=== PATIENT | female | born 1935 | race Caucasian/White ===

== ENCOUNTER 2016-05-10 00:33 | Observation (INO) | payer MEDICARE ==
[~2016-05-10] VITALS: Ht 177.8 cm; Wt 90.0 kg
[~2016-05-10 00:33] MED LIST: BRIMONIDINE0.2 % OU; CARDIZEM90 MG PO; CARVEDILOL6.25 MG PO; COUMADIN2 MG PO; DILTIAZEM CD180 MG PO; DORZOLAMIDE HCL2 % OD; ISOSORB DIN30 MG PO; ISOSORB MONO30 MG PO; KLOR-CON 1010 MEQ PO; LASIX 20 MG TAB20 MG PO; LOSARTAN POT50 MG PO; LUMIGAN0.01 % OP; LUMIGAN0.01 % OU; LUMIGAN0.03 % OP; POT CHLORIDE10 ME1 PO; POTASSIMIN75 MG PO; PRED FORTE1 % OS; WARFARIN2 MG PO
[2016-05-10] MEDS ORDERED: ESCITALOPRAM OX10 MG PO (01:15)
[2016-05-10] MEDS ORDERED: RANEXA PO (01:26)
[2016-05-10 01:49] LABS: HEMATOCRIT 38.6 % (37.0-47.0); HEMOGLOBIN 12.7 g/dl (12.0-16.0); IMMATURE GRANULOCYTES 0.7 % (0.0-1.0); MEAN CELL VOLUME 109.7 fL CALC (80.0-100.0); MEAN CORPUSCULAR HGB 36.1 pG CALC (26.0-32.0); MEAN CORPUSCULAR HGB CONC 32.9 g/L CALC (32.0-36.0); NEUT# 3.62 thou/uL (2.00-7.15); RED BLOOD COUNT 3.52 mill/uL (4.20-5.60); RED CELL DISTRI WIDTH 13.8 % (11.5-15.5)
[2016-05-10 02:11] LABS: INTERNATIONAL NORMALIZED RATIO 0.9 RATIO (0.7-1.3); PROTHROMBIN TIME 10.1 SECONDS (9.0-12.5)
[2016-05-10 02:26] LABS: ALBUMIN 3.9 g/dL (3.2-5.0); ALKALINE PHOSPHATASE 56 u/l (38-126); ANION GAP 15 (6-22 (CALC)); BILIRUBIN, TOTAL 0.3 mg/dL (0.0-1.4); BUN 19 mg/dL (8-23); BUN/CREATININE RATIO 26 (12-20 (CALC)); CALCIUM 10.5 mg/dL (8.4-10.2); CARBON DIOXIDE 24 mmol/l (22-30); CHLORIDE 103 mmol/l (95-108); CREATININE 0.7 mg/dL (0.5-1.0); GFR > 60 ML/MIN (>=60 (CALC)); GFR FOR AFR.AMER. > 60 ML/MIN (>=60 (CALC)); GLUCOSE 315 mg/dL (82-115); POTASSIUM 3.9 mmol/l (3.5-5.1); SGOT/AST 28 u/l (9-36); SGPT/ALT 43 u/l (11-66); SODIUM 138 mmol/l (137-146); TOTAL PROTEIN 6.6 g/dL (6.3-8.2)
[2016-05-10 02:36] LABS: MYOGLOBIN 112 ng/mL (0 - 62)
[2016-05-10 03:51] LABS: URINE BILIRUBIN - DIPSTICK NEGATIVE (NEGATIVE); URINE BLOOD DIPSTICK TRACE-INTACT (NEGATIVE); URINE CLARITY CLEAR; URINE COLOR YELLOW; URINE GLUCOSE - DIPSTICK >=1000 mg/dL (NEGATIVE); URINE KETONE NEGATIVE (NEGATIVE); URINE LEUK ESTERASE NEGATIVE (NEGATIVE); URINE NITRITE - DIPSTICK NEGATIVE (Negative); URINE PROTEIN - DIPSTICK NEGATIVE (NEG-TRACE); URINE UROBILINOGEN - DIPSTICK 0.2 E.U./dL (0.2)
[2016-05-10 06:30] VITALS: BP 136/82
[2016-05-10 09:07] VITALS: BP 116/72
[2016-05-10 14:13] VITALS: BP 116/72
== END 2016-05-10 16:42 | disposition home or self-care (01) ==
LOC: ENPENDDIS → ED 00:33 → ED-I 05:27 → ED 05:50 → MS2 05:51
PROVIDERS: Emergency Medicine; ADMIT Internal Medicine; ATTEND Internal Medicine
DX: R07.89 Other chest pain (principal); I48.2 Chronic atrial fibrillation; I11.0 Hypertensive heart disease with heart failure; I50.9 Heart failure, unspecified; M19.90 Unspecified osteoarthritis, unspecified site; Z88.0 Allergy status to penicillin; Z79.01 Long term (current) use of anticoagulants

== ENCOUNTER 2017-02-26 09:34 | Emergency (ER) | payer MEDICARE ==
[~2017-02-26] VITALS: Ht 177.8 cm; Wt 90.0 kg
[~2017-02-26 09:34] MED LIST changes: +ESCITALOPRAM OX10 MG PO; +JANUVIA50 MG PO; +RANEXA PO; +VITAMIN B-121000 MCG PO
[2017-02-26 11:51] LABS: HEMATOCRIT 36.9 % (37.0-47.0); HEMOGLOBIN 12.2 g/dl (12.0-16.0); IMMATURE GRANULOCYTES 0.3 % (0.0-1.0); MEAN CELL VOLUME 110.8 fL CALC (80.0-100.0); MEAN CORPUSCULAR HGB 36.6 pG CALC (26.0-32.0); MEAN CORPUSCULAR HGB CONC 33.1 g/L CALC (32.0-36.0); NEUT# 2.7 thou/uL (2.00-7.15); RED BLOOD COUNT 3.33 mill/uL (4.20-5.60); RED CELL DISTRI WIDTH 13.5 % (11.5-15.5)
[2017-02-26 11:58] LABS: ALBUMIN 4.2 g/dL (3.2-5.0); ALKALINE PHOSPHATASE 58 u/l (38-126); ANION GAP 17 (6-22 (CALC)); BILIRUBIN, TOTAL 0.6 mg/dL (0.0-1.4); BUN 20 mg/dL (8-23); BUN/CREATININE RATIO 19 (12-20 (CALC)); CALCIUM 11.6 mg/dL (8.4-10.2); CARBON DIOXIDE 28 mmol/l (22-30); CHLORIDE 98 mmol/l (95-108); GFR 53 ML/MIN (>=60 (CALC)); GFR FOR AFR.AMER. > 60 ML/MIN (>=60 (CALC)); GLUCOSE 152 mg/dL (82-115); INTERNATIONAL NORMALIZED RATIO 2.1 RATIO (0.7-1.3); POTASSIUM 4.3 mmol/l (3.5-5.1); SGOT/AST 18 u/l (9-36); SGPT/ALT 22 u/l (11-66); SODIUM 139 mmol/l (137-146); TOTAL PROTEIN 6.6 g/dL (6.3-8.2)
[2017-02-26 14:45] VITALS: BP 118/68
[2017-02-26 15:05] LABS: URINE BILIRUBIN - DIPSTICK NEGATIVE (NEGATIVE); URINE BLOOD DIPSTICK NEGATIVE (NEGATIVE); URINE COLOR YELLOW; URINE GLUCOSE - DIPSTICK NEGATIVE (NEGATIVE); URINE KETONE NEGATIVE (NEGATIVE); URINE LEUK ESTERASE NEGATIVE (Negative); URINE NITRITE - DIPSTICK NEGATIVE (Negative); URINE PROTEIN - DIPSTICK NEGATIVE (NEG-TRACE); URINE UROBILINOGEN - DIPSTICK 0.2 E.U./dL (0.2)
[2017-02-26 15:06] LABS: URINE CLARITY CLEAR
[2017-02-27] MEDS ORDERED: METOLAZONE2.5 MG PO (17:28)
[2017-02-27] MEDS ORDERED: ANASTROZOLE1 MG PO (17:30)
[2017-02-27] MEDS ORDERED: VITAMIN D32000 UNIT PO (17:30)
[2017-02-27] MEDS ORDERED: COUMADIN3 MG PO (17:32)
== END 2017-02-26 15:25 | disposition home or self-care (01) ==
LOC: ED 09:34
PROVIDERS: Emergency Medicine
DX: S09.90XA Unspecified injury of head, initial encounter (principal); R53.1 Weakness; W06.XXXA Fall from bed, initial encounter; Z91.81 History of falling; Y92.003 Bedroom of unspecified non-institutional (private) residence as the place of occurrence of the external cause

== ENCOUNTER 2017-02-27 14:35 | Inpatient (IN) | payer MEDICARE ==
[~2017-02-27] VITALS: Ht 177.8 cm; Wt 84.9 kg
[2017-02-27 15:15] LABS: HEMATOCRIT 38.7 % (37.0-47.0); HEMOGLOBIN 12.9 g/dl (12.0-16.0); IMMATURE GRANULOCYTES 0.3 % (0.0-1.0); MEAN CELL VOLUME 110.3 fL CALC (80.0-100.0); MEAN CORPUSCULAR HGB 36.8 pG CALC (26.0-32.0); MEAN CORPUSCULAR HGB CONC 33.3 g/L CALC (32.0-36.0); NEUT# 2.75 thou/uL (2.00-7.15); RED BLOOD COUNT 3.51 mill/uL (4.20-5.60); RED CELL DISTRI WIDTH 13.3 % (11.5-15.5)
[2017-02-27 15:20] LABS: PROTHROMBIN TIME 22.4 SECONDS (9.0-12.5)
[2017-02-27 15:21] LABS: ALBUMIN 4.4 g/dL (3.2-5.0); ALKALINE PHOSPHATASE 59 u/l (38-126); ANION GAP 16 (6-22 (CALC)); BILIRUBIN, TOTAL 0.7 mg/dL (0.0-1.4); BUN 21 mg/dL (8-23); BUN/CREATININE RATIO 20 (12-20 (CALC)); CALCIUM 11.7 mg/dL (8.4-10.2); CARBON DIOXIDE 27 mmol/l (22-30); CHLORIDE 100 mmol/l (95-108); CREATININE 1.1 mg/dL (0.5-1.0); GFR 48 ML/MIN (>=60 (CALC)); GFR FOR AFR.AMER. 58 ML/MIN (>=60 (CALC)); GLUCOSE 148 mg/dL (82-115); POTASSIUM 4.1 mmol/l (3.5-5.1); SGOT/AST 21 u/l (9-36); SGPT/ALT 22 u/l (11-66); SODIUM 139 mmol/l (137-146); TOTAL PROTEIN 7.2 g/dL (6.3-8.2)
[2017-02-27 15:33] LABS: MYOGLOBIN 58 ng/mL (0 - 62)
--- NOTE | 2017-02-27 16:25 | NUR ---
PT ARRIVES WITH COMPLAINT OF WEAKNESS, SYNCOPAL EPISODE AT HER DOCTOR'S OFFICE. LEAKING IV SITE RETAPED, PT STARTED ON IVF PER LOW BP IN THE 80s SYSTOLIC. PT IMPROVES TO 94/53 AT THIS TIME, HAS BEEN HIGHER EARLIER.
--- NOTE | 2017-02-27 16:43 | NUR ---
SBAR PRINTED TO FLOOR
--- NOTE | 2017-02-27 16:45 | NUR ---
PT AWARE OF PENDING ADMISSION. CAREGIVER REMAINS AT BEDSIDE.
--- NOTE | 2017-02-27 17:15 | NUR ---
PT ARRIVED TO FLOOR VIA STRETCHER ACCOMPANIED BY CHAVEZ ARCHIBALD. PT TRANSFERED TO BED BY STAND-PIVOT. PT REPORTS DIZZINESS WITH SITTING/STANDING. FALL RPECAUTIONS REINFORCED. PT INSTRUCTED TO CALL FOR ASSIST OUT OF BED. CALL LIGHT REVIEWED AND IN REACH. PLAN OF CARE DISCUSSED. REPORTING OF CONCERNS ENCOURAGED. PT STATES UNDERSTANDING. PT'S 24/HR CAREGIVER JORDY AT BEDSIDE. BED ALARM SET FOR SAFETY.
--- NOTE | 2017-02-27 17:24 | NUR ---
REPORT PROVIDED TO CHRISSY, PT TAKEN TO ROOM 260 WITHOUT INCIDENT.
[2017-02-27] MEDS ORDERED: METOLAZONE2.5 MG PO (17:28)
[2017-02-27] MEDS ORDERED: VITAMIN D32000 UNIT PO (17:30)
[2017-02-27] MEDS ORDERED: ANASTROZOLE1 MG PO (17:30)
[2017-02-27] MEDS ORDERED: COUMADIN3 MG PO (17:32)
[2017-02-27 17:35] VITALS: BP 124/70
[2017-02-27 17:36] VITALS: BP 117/63
[2017-02-27 18:00] VITALS: BP 93/55
--- NOTE | 2017-02-27 19:00 | NUR ---
BEDSIDE REPORT RECEIVED FROM CHAVEZ YAN. PT SITTING UP IN BED WATCHING TV. ALERT AND ORIENTED. DENIES PAIN CURRENLTY. RESPIRATIONS EVEN AND UNLABORED. PLAN OF CARE DISCUSSED. PT ENCOURAGED TO VERBALZIE CONCERNS. STATES UNDERSTANDING. LIMB ALERT BRACELET TO LEFT ARM; HX OF L MASTECTOMY. TELE IN PLACE AND IV FLUIDS INFUSING WITHOUT DIFFICULTY. SAFETY MEASURES IN PLACE. CALL LIGHT WITHIN REACH.
--- NOTE | 2017-02-27 21:00 | NUR ---
HELD COREG FOR LOW BP 93/55 WITH RECHECK OF 106/65. WILL CONTINUE TO MONITOR BLOOD PRESSURES AND CHECK ORTHOSTATIC THIS SHIFT.
[2017-02-27 23:57] VITALS: BP 109/62
[2017-02-28] VITALS (9 sets, daily range): BP systolic 95–112; BP diastolic 62–77
--- NOTE | 2017-02-28 00:43 | NUR ---
PT UP WATCHING TV. C/O HEADACHE AND TYLENOL GIVEN WITH GOOD EFFECT. RESPIRATIONS EVEN AND UNLABORED. PT HAS NO REQUESTS AT THIS TIME. CALL LIGHT WITHIN REACH.
--- NOTE | 2017-02-28 04:35 | NUR ---
PT UP TO BSC TO VOID. DENIES PAIN. HAS NO REQUESTS AT THIS TIME. CALL LIGHT WITHIN REACH.
[2017-02-28 06:34] LABS: HEMATOCRIT 37.4 % (37.0-47.0); HEMOGLOBIN 12.2 g/dl (12.0-16.0); MEAN CORPUSCULAR HGB 36.2 pG CALC (26.0-32.0); MEAN CORPUSCULAR HGB CONC 32.6 g/L CALC (32.0-36.0); RED BLOOD COUNT 3.37 mill/uL (4.20-5.60); RED CELL DISTRI WIDTH 13.2 % (11.5-15.5)
[2017-02-28 06:49] LABS: ANION GAP 14 (6-22 (CALC)); BUN 19 mg/dL (8-23); BUN/CREATININE RATIO 20 (12-20 (CALC)); CARBON DIOXIDE 28 mmol/l (22-30); CHLORIDE 102 mmol/l (95-108); GFR 53 ML/MIN (>=60 (CALC)); GFR FOR AFR.AMER. > 60 ML/MIN (>=60 (CALC)); GLUCOSE 133 mg/dL (82-115); POTASSIUM 3.9 mmol/l (3.5-5.1); SODIUM 140 mmol/l (137-146)
[2017-02-28 07:00] LABS: PROTHROMBIN TIME 22.9 SECONDS (9.0-12.5)
--- NOTE | 2017-02-28 07:00 | NUR ---
SHIFT CHANGE REPRT FROM KATHARINE, PT AWAKE ALERT AND ORIENTED, C/O ACHING HEADACHE @ 12/05, ADDRESSED WITH MED, TELE MONITOR IN PLACE, ALL NEEDS ADDRESSED, CALL SHORE IN REACH.
--- NOTE | 2017-02-28 10:01 | NUR ---
ORTHO BP'S SUPINE = 103/64, 88 SITTING = 107/62, 89 STANDING = 110/69, 100
--- NOTE | 2017-02-28 10:42 | NUR ---
PHYSICAL THERAPISTS HERE AT THIS TIME AND AMBULATED PT IN [address], FAMILY MEMBERS AT BEDSIDE.
--- NOTE | 2017-02-28 12:00 | NUR ---
SITTING UP AT BEDSIDE HAVING MEAL, REPORTS HEADACHE HAS RESOLVED, ALL NEEDS ADDRESSED, CALL SHORE IN REACH.
--- NOTE | 2017-02-28 15:58 | NUR ---
RESTING IN BED, CLERGY VISITED, NO C/O DISCOMFORT.
--- NOTE | 2017-02-28 19:15 | NUR ---
PT RESTING IN BED WITH FAMILY AT BEDSIDE. PT ALERT AND ORIENTED. RESP EVEN AND UNLABORED. LUNGS CLEAR BILAT. NO DISTRESS NOTED. BRUISING TO FACE NOTED. PT STATES RIGHT EYE BLINDNESS. LEFT EYE REACTIVE TO LIGHT. ABD SOFT, BOWEL SOUNDS PRESENT. PEDAL PULSES PALPATED BILAT. TELE IN PLACE. IV RH PATENT, FLUSHED WITHOUT ANY DIFFICULTY. HAND GRASP STRONG BILAT. PT DENIES ANY PAIN OR DISCOMFORT. FREQUENT ROUNDS MADE. CALL LIGHT WITHIN REACH.
--- NOTE | 2017-02-28 21:50 | NUR ---
ORTHOSTATIC BP'S: 111/75, HR: 84, O2: 94 112/77, HR: 92, O2; 93 111/76, HR: 104, O2 96
[2017-03-01] VITALS (7 sets, daily range): BP systolic 105–136; BP diastolic 57–78
--- NOTE | 2017-03-01 00:46 | NUR ---
PT APPEARS TO BE SLEEPING WITH EYES CLOSED. RESP EVEN AND UNLABORED. NO DISTRESS NOTED. TELE IN PLACE. CALL LIGHT WITHIN REACH.
--- NOTE | 2017-03-01 04:45 | NUR ---
PT HAS HEADACHE. PT STATES "I WOULD LIKE TYLENOL FOR HEADACHE". PT MEDICATED. LAB IN ROOM WITH PT. PT REPOSITIONED FOR COMFORT. ASSESSMENT UNCHANGED. NO DISTRESS NOTED. CALL LIGHT WITHIN REACH.
[2017-03-01 06:15] LABS: HEMATOCRIT 41.2 % (37.0-47.0); HEMOGLOBIN 13.5 g/dl (12.0-16.0); IMMATURE GRANULOCYTES 0.3 % (0.0-1.0); MEAN CORPUSCULAR HGB 36.7 pG CALC (26.0-32.0); MEAN CORPUSCULAR HGB CONC 32.8 g/L CALC (32.0-36.0); NEUT# 1.77 thou/uL (2.00-7.15); RED BLOOD COUNT 3.68 mill/uL (4.20-5.60); RED CELL DISTRI WIDTH 12.9 % (11.5-15.5)
[2017-03-01 06:23] LABS: ANION GAP 14 (6-22 (CALC)); BUN 19 mg/dL (8-23); BUN/CREATININE RATIO 21 (12-20 (CALC)); CALCIUM 11.2 mg/dL (8.4-10.2); CARBON DIOXIDE 27 mmol/l (22-30); CHLORIDE 104 mmol/l (95-108); CREATININE 0.9 mg/dL (0.5-1.0); GFR 60 ML/MIN (>=60 (CALC)); GFR FOR AFR.AMER. > 60 ML/MIN (>=60 (CALC)); GLUCOSE 132 mg/dL (82-115); MAGNESIUM 2.3 mg/dL (1.6-2.3); POTASSIUM 4.1 mmol/l (3.5-5.1); SODIUM 141 mmol/l (137-146)
[2017-03-01 06:25] LABS: INTERNATIONAL NORMALIZED RATIO 1.6 RATIO (0.7-1.3); PROTHROMBIN TIME 18.3 SECONDS (9.0-12.5)
--- NOTE | 2017-03-01 07:00 | NUR ---
SHIFT CHANGE FROM FRED, PT SLEEPING BUT AROUSES TO MODERATE VERBAL STIMULATION, NO C/O DISCOMFORT, TELE MONITOR IN PLACE, CALL SHORE IN REACH.
--- NOTE | 2017-03-01 09:16 | NUR ---
PT WAS ABLE TO DO SUPINE TO SIT INDEPENDENTLY. PERFORMED ROLLING, SCOOTING AND [id number] INDEPENDENTLY. SHE WAS ABLE TO AMBULATE AT LEAST 70 FT. X 2 WITH RW AND CGA FOR SAFETY. PT DEMONSTRATED STABILITY DURING GT. REQUIRED ONLY MINIMAL VERBAL CUES ON THE USE OF ROLLING WALKER. RETURNED TO ROOM, SAT IN THE RECLINER WITH LEGS ELEVATED. CALL SHORE WITHIN REACH. NO ADVERSE RXNS NOTED OR REPORTED AT THE END OF TX.
--- NOTE | 2017-03-01 10:30 | NUR ---
DR WHITE AND ANNALISE DENNIS, WROTE ORDERS.
--- NOTE | 2017-03-01 12:07 | NUR ---
ORTHOSTATIC BP MEASURED AND RECORDED AFTER INFORMING/EDUCATING PT ON PROCEDURE, AMBULATED HALLWAY EARLIER WITH PT AND TOLERATED WELL, SET UP FOR MEAL, CALL SHORE IN REACH.
--- NOTE | 2017-03-01 16:25 | NUR ---
NEW IV CATHETER PLACED, HEADACHE ADDRESSED, RESTING N BED WITH CALL SHORE IN REACH.
--- NOTE | 2017-03-01 19:25 | NUR ---
PT RESTING IN BED WITH FAMILY AT BEDSIDE. PT ALERT AND ORIENTED. PT DENIES ANY PAIN OR DISCOMFORT. RESP EVEN AND UNLABORED. LUNGS CLEAR BILAT. NO DISTRESS NOTED. TELE IN PLACE. ABD SOFT, BOWEL SOUNDS PRESENT. PEDAL PULSES PALPATED BILAT. HAND GRASP STRONG BILAT. FACIAL BRUISING NOTED. IV RW PATENT, FLUSHED WITHOUT DIFFICULTY. FREQUENT ROUNDS MADE. SAFETY PRECAUTIONS REINFORCED. CALL LIGHT WITHIN REACH.
--- NOTE | 2017-03-02 00:38 | NUR ---
PT APPEARS TO BE SLEEPING WITH EYES CLOSED. RESP EVEN AND UNLABORED. NO DISTRESS NOTED. TELE IN PLACE. CALL LIGHT WITHIN REACH.
[2017-03-02 01:00] LABS: URINE BILIRUBIN - DIPSTICK NEGATIVE (NEGATIVE); URINE BLOOD DIPSTICK NEGATIVE (NEGATIVE); URINE COLOR YELLOW; URINE GLUCOSE - DIPSTICK NEGATIVE (NEGATIVE); URINE KETONE NEGATIVE (NEGATIVE); URINE LEUK ESTERASE NEGATIVE (NEGATIVE); URINE NITRITE - DIPSTICK NEGATIVE (Negative); URINE PROTEIN - DIPSTICK NEGATIVE (NEG-TRACE); URINE UROBILINOGEN - DIPSTICK 0.2 E.U./dL (0.2)
[2017-03-02 01:01] LABS: URINE CLARITY CLEAR
[2017-03-02 01:02] VITALS: BP 102/68
--- NOTE | 2017-03-02 04:10 | NUR ---
PT APPEARS TO BE ASLEEP. RESP EVEN AND UNLABORED. NO DISTRESS NOTED. CALL LIGHT WITHIN REACH .
[2017-03-02 04:30] VITALS: BP 109/64
--- NOTE | 2017-03-02 05:31 | NUR ---
LAB IN ROOM WITH PT. PT DENIES ANY PAIN OR DISCOMFORT. RESP EVEN AND UNLABORED. ASSESSMENT UNCHANGED. CALL LIGHT WITHIN REACH.
[2017-03-02 06:58] LABS: INTERNATIONAL NORMALIZED RATIO 1.6 RATIO (0.7-1.3); PROTHROMBIN TIME 17.5 SECONDS (9.0-12.5)
[2017-03-02 07:10] LABS: ANION GAP 13 (6-22 (CALC)); BUN 21 mg/dL (8-23); BUN/CREATININE RATIO 22 (12-20 (CALC)); CALCIUM 10.8 mg/dL (8.4-10.2); CARBON DIOXIDE 30 mmol/l (22-30); CHLORIDE 104 mmol/l (95-108); CREATININE 0.9 mg/dL (0.5-1.0); GFR 60 ML/MIN (>=60 (CALC)); GFR FOR AFR.AMER. > 60 ML/MIN (>=60 (CALC)); GLUCOSE 128 mg/dL (82-115); POTASSIUM 4.3 mmol/l (3.5-5.1); SODIUM 142 mmol/l (137-146)
--- NOTE | 2017-03-02 09:15 | NUR ---
Pt. found resting in bed, refused to get out of bed for ambulation but agreed to participate in bed exercises this AM. HOB was elevated, pt. instructed on and performed bilateral ankle pumps 2x20 repetitons, R and L uni active hip abuction in long sitting 2x8 repetitions, R and L uni SAQ exercises 1x10 repetitions and R and L uni heel slides 1x10 repetitions. Pt. reported feeling tired after these few exercises, nurse came in at the end of treatment. Pt. complained of headache and was requesting medication for same. Pt. left with nurse. Call light and bedside table within reach. Pt. without questions in regards to exercises.
[2017-03-02 09:17] VITALS: BP 118/70
--- NOTE | 2017-03-02 09:17 | NUR ---
PT.IS UPRIGHT IN BED W/BEDSIDE TABLE AND CALL LIGHT W/IN REACH. SHE REPORTS EATING HER BREAKFAST. PT.HAS BEEN MEDICATED AT THIS TIME ORDERS PROVIDE. SHE C/O HEADACHE 10/05, APPEARS 06/05. PT.IS TALKATIVE, DENIES ANY OTHER PAIN/N/V AT THIS TIME. V/S ASSESSED, REPORTS SMALL BMX2 YESTERDAY, BUT IS REQUESTING MILK OF MAGNESIA AGAIN. PT.MEDICATED W/SATURNINO-COLACE ORDERED.
--- NOTE | 2017-03-02 10:00 | NUR ---
PT.IS GETTING A SHOWER AT THIS TIME.
[2017-03-02 10:30] VITALS: BP 111/63
--- NOTE | 2017-03-02 10:30 | NUR ---
ORTHOSTATIC BP ON PATIENT. LAYIN.0;111/63;82;22;94% SITTIN/63;93;22;95% STANDIN/65;95;22;97% PT NOW RESTING IN CHAIR WITH CALL SHORE AT SIDE.
[2017-03-02 10:35] VITALS: BP 103/65
[2017-03-02 10:40] VITALS: BP 103/63
--- NOTE | 2017-03-02 11:30 | NUR ---
Elian from Case Management requested pharmacy to speak with pt about her meds. Pt wondering what medications will be changed upon discharge. Informed pt that we will continue to monitor her BP and may make adjustments to her BP medication due to her orthostatic hypotension. Counseled pt in depth about orthostatic hypotension, including the importance of getting up slowly, sitting on side of bed for a few minutes before standing, and using her walker. Pt verbalized understanding. Counseled pt to take water pill in the morning to reduce getting up during the night. Pt concerned she has not had bowel movement today, however she had two small BMs yesterday. Explained s/sx of constipation and prevention.
[2017-03-02] MEDS ORDERED: TRAMADOL HCL50 MG PO (14:39)
== END 2017-03-02 16:13 | DRG 312 ==
LOC: ED 14:35 → ED-I 16:16 → ED 16:36 → MS2 16:38
PROVIDERS: Emergency Medicine; Nurse Practitioner Family; ADMIT Internal Medicine; ATTEND Internal Medicine
DX: I95.2 Hypotension due to drugs (principal); I42.9 Cardiomyopathy, unspecified; I48.2 Chronic atrial fibrillation; I13.0 Hypertensive heart and chronic kidney disease with heart failure and stage 1 through stage 4 chronic kidney disease, or unspecified chronic kidney disease; I50.9 Heart failure, unspecified; H40.9 Unspecified glaucoma; H54.61 Unqualified visual loss, right eye, normal vision left eye; G31.84 Mild cognitive impairment of uncertain or unknown etiology; N18.9 Chronic kidney disease, unspecified; K59.00 Constipation, unspecified; T50.2X5A Adverse effect of carbonic-anhydrase inhibitors, benzothiadiazides and other diuretics, initial encounter; T50.1X5A Adverse effect of loop [high-ceiling] diuretics, initial encounter; S00.83XA Contusion of other part of head, initial encounter; S00.12XA Contusion of left eyelid and periocular area, initial encounter; S00.11XA Contusion of right eyelid and periocular area, initial encounter; W19.XXXA Unspecified fall, initial encounter; M81.0 Age-related osteoporosis without current pathological fracture; R53.1 Weakness; Y92.009 Unspecified place in unspecified non-institutional (private) residence as the place of occurrence of the external cause; Z85.3 Personal history of malignant neoplasm of breast; Z79.01 Long term (current) use of anticoagulants; Z90.12 Acquired absence of left breast and nipple; Z92.3 Personal history of irradiation; Z87.891 Personal history of nicotine dependence; Z95.818 Presence of other cardiac implants and grafts

== ENCOUNTER 2017-10-11 16:20 | Observation (INO) | payer MEDICARE ==
[~2017-10-11] VITALS: Ht 175.3 cm; Wt 89.9 kg
[~2017-10-11 16:20] MED LIST changes: +ANASTROZOLE1 MG PO; +COUMADIN3 MG PO; +METOLAZONE2.5 MG PO; +PRED FORTE1 % OD; -PRED FORTE1 % OS; +TRAMADOL HCL50 MG PO; +VITAMIN D32000 UNIT PO
[2017-10-11 16:51] LABS: HEMATOCRIT 34.7 % (37.0-47.0); HEMOGLOBIN 11.1 g/dl (12.0-16.0); IMMATURE GRANULOCYTES 0.3 % (0.0-5.0); MEAN CELL VOLUME 106.8 fL CALC (80.0-100.0); MEAN CORPUSCULAR HGB 34.2 pG CALC (26.0-32.0); NEUT# 2.01 thou/uL (2.00-7.15); RED BLOOD COUNT 3.25 mill/uL (4.20-5.60); RED CELL DISTRI WIDTH 14.2 % (11.5-15.5)
[2017-10-11 17:06] LABS: INTERNATIONAL NORMALIZED RATIO 2.1 RATIO (0.7-1.3); PROTHROMBIN TIME 24.4 SECONDS (9.0-12.5)
[2017-10-11 17:26] LABS: ALBUMIN 4.1 g/dL (3.2-5.0); ALKALINE PHOSPHATASE 51 u/l (38-126); AMYLASE 60 u/l (30-110); ANION GAP 14 (6-22 (CALC)); BILIRUBIN, TOTAL 0.5 mg/dL (0.0-1.4); BUN 16 mg/dL (8-23); BUN/CREATININE RATIO 19 (12-20 (CALC)); CARBON DIOXIDE 26 mmol/l (22-30); CHLORIDE 106 mmol/l (95-108); CREATININE 0.9 mg/dL (0.5-1.0); GFR 60 ML/MIN (>=60 (CALC)); GFR FOR AFR.AMER. > 60 ML/MIN (>=60 (CALC)); LIPASE 57 u/l (23-300); POTASSIUM 4.9 mmol/l (3.5-5.1); SGOT/AST 22 u/l (9-36); SGPT/ALT 17 u/l (11-66); SODIUM 141 mmol/l (137-146); TOTAL PROTEIN 6.9 g/dL (6.3-8.2)
[2017-10-11 18:00] LABS: MYOGLOBIN 31 ng/mL (0 - 62)
[2017-10-11 19:15] VITALS: BP 133/79
[2017-10-11 23:58] VITALS: BP 111/58
[2017-10-12 04:40] VITALS: BP 99/54
[2017-10-12 08:37] VITALS: BP 103/68
[2017-10-12 11:20] VITALS: BP 124/64
== END 2017-10-12 14:35 | disposition home or self-care (01) ==
LOC: ED 16:20 → ED-I 18:00 → ED 18:37 → MS2 18:38
PROVIDERS: Emergency Medicine; ADMIT Internal Medicine; ATTEND Internal Medicine
DX: R07.9 Chest pain, unspecified (principal); I11.0 Hypertensive heart disease with heart failure; I50.9 Heart failure, unspecified; D53.9 Nutritional anemia, unspecified; H40.9 Unspecified glaucoma; I42.9 Cardiomyopathy, unspecified; I48.2 Chronic atrial fibrillation; Z87.891 Personal history of nicotine dependence; Z79.01 Long term (current) use of anticoagulants; Z85.3 Personal history of malignant neoplasm of breast; Z79.899 Other long term (current) drug therapy

== ENCOUNTER 2018-01-06 15:27 | Observation (INO) | payer MEDICARE ==
[~2018-01-06] VITALS: Ht 177.8 cm; Wt 92.2 kg
--- NOTE | 2018-01-06 15:29 | NUR ---
PT BROUGHT TO ER PER EMS.
--- NOTE | 2018-01-06 15:41 | NUR ---
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 DENIES LOC
--- NOTE | 2018-01-06 15:58 | NUR ---
PT STATES CAN NOT USE LEFT ARM BECAUSE OF MASECTOMY . NO NEEDLE STICKS TO LEFT ARM
[2018-01-06 16:03] LABS: HEMATOCRIT 35.1 % (37.0-47.0); HEMOGLOBIN 10.9 g/dl (12.0-16.0); IMMATURE GRANULOCYTES 0.2 % (0.0-5.0); MEAN CELL VOLUME 105.1 fL CALC (80.0-100.0); MEAN CORPUSCULAR HGB 32.6 pG CALC (26.0-32.0); MEAN CORPUSCULAR HGB CONC 31.1 g/L CALC (32.0-36.0); NEUT# 2.7 thou/uL (2.00-7.15); RED BLOOD COUNT 3.34 mill/uL (4.20-5.60); RED CELL DISTRI WIDTH 15.2 % (11.5-15.5)
[2018-01-06 16:20] LABS: INTERNATIONAL NORMALIZED RATIO 3.8 RATIO (0.7-1.3); PROTHROMBIN TIME 39.7 SECONDS (9.0-12.5)
--- NOTE | 2018-01-06 16:23 | NUR ---
PT ALERT/ORIENTED X3, JOKING WITH STAFF, DENIES ANY PAIN AT THIS TIME.
[2018-01-06 16:29] LABS: ALBUMIN 4.3 g/dL (3.2-5.0); ALKALINE PHOSPHATASE 47 u/l (38-126); ANION GAP 16 (6-22 (CALC)); BILIRUBIN, TOTAL 0.5 mg/dL (0.0-1.4); BUN 22 mg/dL (8-23); BUN/CREATININE RATIO 21 (12-20 (CALC)); CARBON DIOXIDE 22 mmol/l (22-30); CHLORIDE 108 mmol/l (95-108); GFR 53 ML/MIN (>=60 (CALC)); GFR FOR AFR.AMER. > 60 ML/MIN (>=60 (CALC)); POTASSIUM 4.6 mmol/l (3.5-5.1); SGOT/AST 19 u/l (9-36); SODIUM 141 mmol/l (137-146); TOTAL PROTEIN 7.3 g/dL (6.3-8.2)
--- NOTE | 2018-01-06 17:11 | NUR ---
REPORT GIVEN TO ICU
--- NOTE | 2018-01-06 17:30 | NUR ---
WAITING FOR ORDERS TO BE PLACED ON PT BEFORE TAKING PT TO ICU
--- NOTE | 2018-01-06 17:38 | NUR ---
HOTEL RECREATIONAL FACILITIES MANAGER SPOKE WITH DR. ROMERO, AND HE IS GOING TO PUT IN THE ORDERS SOON POSSIBLE
--- NOTE | 2018-01-06 17:40 | NUR ---
PTS FAMILY TOOK PTS WALLET AND GLASSES HOME WITH HER, SENDING WITH PT TO FLOOR IS HER TENNIS SHOES, BRA, AND PINK SHIRT.
--- NOTE | 2018-01-06 17:47 | NUR ---
CHARGE NURSE AWARE OF DELAY IN ORDERS FROM ADMITTING DOCTOR.
--- NOTE | 2018-01-06 17:50 | NUR ---
Admission Note Report Given to: SBAR PRINTED TO FLOOR Transported by: Wheelchair X Stretcher Transported with: X Nurse Transporter X Patent IV O2 X Economic Forecaster
[2018-01-06 17:55] VITALS: BP 142/67
--- NOTE | 2018-01-06 17:55 | NUR ---
female pt received to ICU bed 4 (MS OF) in stable condition; ambulatory to scale then bed with steady gait; admission assessment completed at this time; pt alert and oriented; admits to losing balance and falling backwards hitting head; no n/v noted; resp even and unlabored; lungs clear bilat; skin color wnl; ra; hr irreg; strong pulses; 2+ edema nored to ble; afib on monitor; abd soft with bs present; no bm noted per ad copy writer; pt voiding cl dk yellow urine; bsc; #22 in rw flushed and patent; no redness or edema noted at site; laceration noted with dermabond and steri-strips intact to right lat hand; no active bleeding noted; negative neuro assessment; oriented to bed and call light system; plan of care explained; informed pt to notify staff immed with change of vision, headache, n/v, numbness to extremities or not feeling right; call light within reach; will continue to monitor
[2018-01-06 19:09] VITALS: BP 122/61
--- NOTE | 2018-01-06 19:30 | NUR ---
PATIENT RESTING IN BED-AWAKE ALERT AND ORIENTEDX3. TELE MONITOR IN PLACE. SALINE LOCK TO RIGHT WRIST-APPEARS HEALTHY AT THIS TIME. 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 LEFT HAND GRASP SLIGHTLY WEAKER THAN RIGHT, PATIENT STATES THAT SHE DOES HAVE CAREGIVER THT STAYS WITH HER 18/09. LAC/SKIN TEAR TO RIGHT HAND INTACT WITH DERMABOND. SAFETY PRECAUTIONS REINFORCED. CALL LIGHT IN REACH. WILL CONT TO MONITOR.
--- NOTE | 2018-01-06 20:18 | NUR ---
PATIENT CALLED AND RESPONDED TO ROOM. PATIENT ASSISTED TO BSC TO VOID 300CC OF RABIA URINE. ASSISTED BACK TO BED. C/O HEADACHE ANDMEDICATED WITH TYLENOL 650MG PO FOR 6/10 ON PAIN SCALE. SALINE LOCK TO RIGHT WRIST INTACT-FLUSHES WITHOUT ANY RESISTANCE. SAFETY PRECAUTIONS REINFORCED. CALL LIGHT IN REACH. WILL CONT TO MONITOR.
--- NOTE | 2018-01-06 21:05 | NUR ---
PATIENT RESTING IN BED-STATES THAT HER HEADACHE IS BETTER-3/10 AT THIS TIME. NO COMPLAINTS AT THIS TIME. SAFTY PRECAUTIONS REINFORCED.CALL LIGHT IN REACH. WILL CONT TO MONITOR.
--- NOTE | 2018-01-06 23:40 | NUR ---
PATIENT APPEARS SLEEPING AT THIS TIME WITH EYES CLOSED. CALL LIGHT IN REACH. WILL CONT TO MONITOR.
[2018-01-07] VITALS (9 sets, daily range): BP systolic 104–151; BP diastolic 49–82
--- NOTE | 2018-01-07 00:36 | NUR ---
PATIENT RESTING IN BED WITH NO COMPLAINTS AT THIS TIME. NEURO CHECKS UNCAHNGED WITH RIGHT EYE NON-REACTIVE AND LEFT BRISK AND REACTIVE. HAND GRASP WITH RIGHT GREATER THAN LEFT. CONT TELE MONITORING WITH A-FIB-72. SAFETY PRECAUTIONS REINFORCED. CALL LIGHT IN REACH. WILL CONT TO MONITOR.
--- NOTE | 2018-01-07 02:12 | NUR ---
PATIENT RESTIONG QUIETLY AT THIS TIOME WITH EYES CLOSED. RESP ARE EVEN AND UNLABORED. CALL LIGHT IN REACH. WILL CONT TO MONITOR.
--- NOTE | 2018-01-07 04:12 | NUR ---
PATIENT RESTING INBED WITH NO COMPLAINTS AT THIS TIME, TELE MONITOR CONT WITH A-FIB-64 AT THIS TIME. NO CHANGE IN NEURO CHECKS. SAFETY PRECAUTIONS REINFORCED. CALL LIGHT IN REACH. WILL CONT TO MONITOR.
[2018-01-07 05:41] LABS: HEMATOCRIT 31.6 % (37.0-47.0); MEAN CELL VOLUME 103.9 fL CALC (80.0-100.0); MEAN CORPUSCULAR HGB 32.9 pG CALC (26.0-32.0); MEAN CORPUSCULAR HGB CONC 31.6 g/L CALC (32.0-36.0); RED BLOOD COUNT 3.04 mill/uL (4.20-5.60)
[2018-01-07 05:43] LABS: INTERNATIONAL NORMALIZED RATIO 3.2 RATIO (0.7-1.3); PROTHROMBIN TIME 32.7 SECONDS (9.0-12.5)
[2018-01-07 05:51] LABS: ANION GAP 7 (6-22 (CALC)); BUN 20 mg/dL (8-23); BUN/CREATININE RATIO 23 (12-20 (CALC)); CARBON DIOXIDE 27 mmol/l (22-30); CHLORIDE 110 mmol/l (95-108); CREATININE 0.8 mg/dL (0.5-1.0); GFR > 60 ML/MIN (>=60 (CALC)); GFR FOR AFR.AMER. > 60 ML/MIN (>=60 (CALC)); POTASSIUM 3.8 mmol/l (3.5-5.1); SODIUM 141 mmol/l (137-146)
--- NOTE | 2018-01-07 07:44 | NUR ---
SHIFT CHANGE REPORT FROM OSITO PT AWAKE ALERT AND ORIENTED, C/O MILD PAIN TO HEAD AND NECK BUT STATED SHE DOES NOT WANT ANYTHING FOR IT, ASSISTED TO BSC AND BACK TO BED, TELE MONITOR IN PLACE, SET UP FOR MEAL AT THIS TIME, WILL CONTINUE TO MONITOR.
--- NOTE | 2018-01-07 11:54 | NUR ---
SITING UP IN HIGH FOWLERS POSITION IN BED HAVING MEAL AT THIS TIME, ALL NEEDS ADDRESSED, CALL SHORE IN REACH.
--- NOTE | 2018-01-07 13:26 | NUR ---
PT TRANSFERRED FROM ICU OVERFLOW BED # 4 TO MED/SURG BED # 272 @ 1320, ASSISTED TO BR, CAREGIVER IN ROOM BUT STATED SHE IS UNABLE TO ASSIST PT OFF TOILET, PT ADVISED TO RING SHORE WHEN FINISHED, WILL CONTINUE TO MONITOR.
--- NOTE | 2018-01-07 13:33 | NUR ---
PT ASSISTED TO BED BY CAREGIVER AT THIS TIME.
--- NOTE | 2018-01-07 16:23 | NUR ---
RESTING IN BED, C/O HEADACHE AND GIVEN TYLENOL, SNACK ALSO OFFERED, CALL SHORE IN REACH, WILL CONTINUE TO MONITOR.
--- NOTE | 2018-01-07 19:21 | NUR ---
PATIENT RESTING IN BED WITH HOB ELEVATED. AWAKE ALERT AND ORIENTEDX3. PATIENT STATES THAT SHE DOES GET HEADACHE ON AND OFF RELIEVED BY TYLENOL PO. TELE MONITOR IN PLACE. SALINE LOCK TO RIGHT WRIST INTACT AND APPEARS HEALTHY AT THIS TIME. LACERATION TO RIGHT LAT HAND WITH DERMABOND IN PLACE-NO DRAINAGE NOTED AT THIS TIME. SAFETY PRECAUTIONS REINFORCED. CALL LIGHT IN REACH. WILL CONT TO MONITOR.
--- NOTE | 2018-01-07 23:52 | NUR ---
PATIENT UP TO THE BR TO VOID AND THEN BACK TO THE BED WITH ASSIST AND USE OF WALKER. PATIENT IS VOIDING QS RABIA URINE. C/O HEADACHE TO THE RIGHT SIDE OF HER HEAD-7/10 ON PAIN SCALE. MEDICATED WITH TYLENOL 650MG PO FOR PAIN. PATIENT TAKING KATELIN CRACKERS FOR SNACK. SAFETY PRECAUTIONS REINFORCED. CALL LIGHT IN REACH. WILL CONT TO MONITOR.
[2018-01-08 00:42] VITALS: BP 122/78
[2018-01-08 04:00] VITALS: BP 131/63
--- NOTE | 2018-01-08 04:23 | NUR ---
APPEARS SLEEPING AT THIS TIME WITH EYES CLOSED. RESP ARE EVEN AND UNLABORED. TELE MONITOR IN PLACE. CALL LIGHT IN REACH. WILL CONT TO MONITOR.
[2018-01-08 05:18] LABS: HEMATOCRIT 34.4 % (37.0-47.0); HEMOGLOBIN 10.8 g/dl (12.0-16.0); IMMATURE GRANULOCYTES 0.3 % (0.0-5.0); MEAN CELL VOLUME 104.6 fL CALC (80.0-100.0); MEAN CORPUSCULAR HGB 32.8 pG CALC (26.0-32.0); MEAN CORPUSCULAR HGB CONC 31.4 g/L CALC (32.0-36.0); NEUT# 1.74 thou/uL (2.00-7.15); RED BLOOD COUNT 3.29 mill/uL (4.20-5.60); RED CELL DISTRI WIDTH 15.1 % (11.5-15.5)
[2018-01-08 05:27] LABS: ALBUMIN 3.5 g/dL (3.2-5.0); ALKALINE PHOSPHATASE 46 u/l (38-126); ANION GAP 9 (6-22 (CALC)); BILIRUBIN, TOTAL 0.4 mg/dL (0.0-1.4); BUN 17 mg/dL (8-23); BUN/CREATININE RATIO 23 (12-20 (CALC)); CARBON DIOXIDE 26 mmol/l (22-30); CHLORIDE 110 mmol/l (95-108); CREATININE 0.8 mg/dL (0.5-1.0); GFR > 60 ML/MIN (>=60 (CALC)); GFR FOR AFR.AMER. > 60 ML/MIN (>=60 (CALC)); MAGNESIUM 2.2 mg/dL (1.6-2.3); SGOT/AST 15 u/l (9-36); SODIUM 140 mmol/l (137-146)
--- NOTE | 2018-01-08 07:00 | NUR ---
SHIFT CHANGE REPORT FROM CJ MCNEILL SLEEPING AT THIS TIME, BREATHING EVEN AND NON-LABORED, NO SIGN DISCOMFORT, TELE MONITOR IN PLACE, CALL SHORE IN REACH.
[2018-01-08 07:59] VITALS: BP 120/63
--- NOTE | 2018-01-08 09:40 | NUR ---
PT SITTING UP IN BED, ATE MEAL AND SLEEPING LIGHTLY AT THIS TIME, RESPONDS TO VERBAL AND TACTILE STIMULI, STATED SHE IS JUST TIRED, NEEDS ADDRESSED.
--- NOTE | 2018-01-08 10:46 | NUR ---
ASSISTED TO BR AND THEN TO RECLINER AFTER ENCOURAGING SITTING UP OOB, CUTTER OPERATOR HELPER IN ROOM, CALL SHORE IN REACH.
[2018-01-08 11:28] VITALS: BP 124/55
--- NOTE | 2018-01-08 12:00 | NUR ---
SITTING UP IN RECLINER, ATE MEAL, ALL NEEDS ADDRESSED, REFUSE COLLECTOR SUPERVISOR IN ROOM.
[2018-01-08 13:55] LABS: INTERNATIONAL NORMALIZED RATIO 2.1 RATIO (0.7-1.3); PROTHROMBIN TIME 22.1 SECONDS (9.0-12.5)
--- NOTE | 2018-01-08 15:51 | NUR ---
Discharge instructions given. Patient verbalizes understanding of same. Discharged in good condition via Wheelchair to Home with *Other. All belongings sent with pt. CAREGIVER RECEIVED PT TO TRANSPORT HOME
== END 2018-01-08 15:50 ==
LOC: ED 15:27 → ED-I 15:58 → ED 16:34 → ICU 16:35 → MS2 01-07 13:20
PROVIDERS: Internal Medicine Nephrology; Nurse Practitioner Family; ADMIT Internal Medicine; ATTEND Internal Medicine
PROC: 0HQFXZZ Repair Right Hand Skin, External Approach (ICD-10-PCS; principal; 2018-01-06)
DX: S00.03XA Contusion of scalp, initial encounter (principal); S61.411A Laceration without foreign body of right hand, initial encounter; I48.2 Chronic atrial fibrillation; C50.912 Malignant neoplasm of unspecified site of left female breast; R26.89 Other abnormalities of gait and mobility; I10 Essential (primary) hypertension; R73.9 Hyperglycemia, unspecified; E78.5 Hyperlipidemia, unspecified; M81.0 Age-related osteoporosis without current pathological fracture; W01.0XXA Fall on same level from slipping, tripping and stumbling without subsequent striking against object, initial encounter; Y92.009 Unspecified place in unspecified non-institutional (private) residence as the place of occurrence of the external cause; Z79.01 Long term (current) use of anticoagulants; Z90.12 Acquired absence of left breast and nipple; Z79.899 Other long term (current) drug therapy; Z87.891 Personal history of nicotine dependence

== ENCOUNTER 2018-04-15 00:57 | Emergency (ER) | payer MEDICARE ==
[~2018-04-15] VITALS: Ht 175.3 cm; Wt 87.7 kg
[2018-04-15 02:00] VITALS: BP 138/78
== END 2018-04-15 02:00 | disposition home or self-care (01) ==
LOC: ED 00:57
DX: S51.811A Laceration without foreign body of right forearm, initial encounter (principal); S41.111A Laceration without foreign body of right upper arm, initial encounter; I11.0 Hypertensive heart disease with heart failure; I50.9 Heart failure, unspecified; I48.91 Unspecified atrial fibrillation; H40.9 Unspecified glaucoma; W01.198A Fall on same level from slipping, tripping and stumbling with subsequent striking against other object, initial encounter; Y93.9 Activity, unspecified; Y92.009 Unspecified place in unspecified non-institutional (private) residence as the place of occurrence of the external cause

== ENCOUNTER → 2018-04-22 | Outpatient (REF) | payer MEDICARE ==
[2018-04-22 10:12] LABS: URINE BILIRUBIN - DIPSTICK NEGATIVE (NEGATIVE); URINE COLOR YELLOW; URINE GLUCOSE - DIPSTICK NEGATIVE (NEGATIVE); URINE KETONE NEGATIVE (NEGATIVE); URINE PH 6.5 (4.5-8.0); URINE UROBILINOGEN - DIPSTICK 0.2 E.U./dL (0.2)
[2018-04-22 10:31] LABS: HEMATOCRIT 33.7 % (37.0-47.0); HEMOGLOBIN 10.6 g/dl (12.0-16.0); MEAN CELL VOLUME 103.7 fL CALC (80.0-100.0); MEAN CORPUSCULAR HGB 32.6 pG CALC (26.0-32.0); MEAN CORPUSCULAR HGB CONC 31.5 g/L CALC (32.0-36.0); RED BLOOD COUNT 3.25 mill/uL (4.20-5.60); RED CELL DISTRI WIDTH 15.8 % (11.5-15.5)
[2018-04-22 10:49] LABS: ALBUMIN 4.1 g/dL (3.2-5.0); ALKALINE PHOSPHATASE 57 u/l (38-126); ANION GAP 15 (6-22 (CALC)); BILIRUBIN, TOTAL 0.6 mg/dL (0.0-1.4); BUN 18 mg/dL (8-23); BUN/CREATININE RATIO 20 (12-20 (CALC)); CALCULATED LDLCHOLESTEROL 82 mg/dL (62-129 (CALC)); CARBON DIOXIDE 24 mmol/l (22-30); CHLORIDE 105 mmol/l (95-108); CHOLESTEROL HDL RATIO 2.3 (<4.4 (CALC)); CREATININE 0.9 mg/dL (0.5-1.0); GFR 60 ML/MIN (>=60 (CALC)); GFR FOR AFR.AMER. > 60 ML/MIN (>=60 (CALC)); HDL CHOLESTEROL 75 mg/dL (>=40); POTASSIUM 4.1 mmol/l (3.5-5.1); SGOT/AST 16 u/l (9-36); SODIUM 139 mmol/l (137-146); TOTAL CHOLESTEROL 175 mg/dl (0-199); TOTAL PROTEIN 6.5 g/dL (6.3-8.2); TOTAL TRIGLYCERIDES 87 mg/dl (30-149); VLDL CHOLESTROL 17 mg/dl (0-48 (CALC))
[2018-04-22 11:28] LABS: URINE BLOOD DIPSTICK NEGATIVE (NEGATIVE); URINE LEUK ESTERASE NEGATIVE (NEGATIVE); URINE NITRITE - DIPSTICK NEGATIVE (Negative); URINE PROTEIN - DIPSTICK NEGATIVE (NEG-TRACE)
== END | disposition home or self-care (01) ==
LOC: LAB 09:07
PROVIDERS: ATTEND Nurse Practitioner
DX: E11.69 Type 2 diabetes mellitus with other specified complication (principal); I10 Essential (primary) hypertension; I48.2 Chronic atrial fibrillation

== ENCOUNTER 2018-07-03 08:15 | Emergency (ER) | payer MEDICARE ==
[~2018-07-03] VITALS: Ht 175.3 cm; Wt 90.0 kg
[2018-07-03 08:41] LABS: GFR > 60 ML/MIN (>=60 (CALC)); GFR FOR AFR.AMER. > 60 ML/MIN (>=60 (CALC)); HEMATOCRIT 35.6 % (37.0-47.0); HEMOGLOBIN 11.7 g/dl (12.0-16.0); IMMATURE GRANULOCYTES 0.3 % (0.0-5.0); MEAN CELL VOLUME 107.9 fL CALC (80.0-100.0); MEAN CORPUSCULAR HGB 35.5 pG CALC (26.0-32.0); MEAN CORPUSCULAR HGB CONC 32.9 g/L CALC (32.0-36.0); NEUT# 5.31 thou/uL (2.00-7.15); RED BLOOD COUNT 3.3 mill/uL (4.20-5.60); RED CELL DISTRI WIDTH 17.8 % (11.5-15.5)
[2018-07-03 09:31] LABS: INTERNATIONAL NORMALIZED RATIO 2.1 RATIO (0.7-1.3); PROTHROMBIN TIME 21.8 SECONDS (9.0-12.5)
[2018-07-03 09:34] LABS: ANION GAP 9 (6-22 (CALC)); BUN 20 mg/dL (8-23); BUN/CREATININE RATIO 26 (12-20 (CALC)); CARBON DIOXIDE 25 mmol/l (22-30); CHLORIDE 105 mmol/l (95-108); CREATININE 0.7 mg/dL (0.5-1.0); GFR > 60 ML/MIN (>=60 (CALC)); GFR FOR AFR.AMER. > 60 ML/MIN (>=60 (CALC)); POTASSIUM 3.8 mmol/l (3.5-5.1); SODIUM 135 mmol/l (137-146)
[2018-07-03] MEDS ORDERED: LASIX 20 MG TAB20 MG PO (09:57)
[2018-07-03] MEDS ORDERED: TRAMADOL HCL50 MG PO (09:57)
[2018-07-03] MEDS ORDERED: LOSARTAN POT50 MG PO (09:58)
[2018-07-03] MEDS ORDERED: ARNUITY EL100 MCG/AC IN (09:59)
[2018-07-03] MEDS ORDERED: MONTELUKAST SOD10 MG PO (09:59)
[2018-07-03] MEDS ORDERED: IMDUR PO (10:01)
[2018-07-03 10:10] VITALS: BP 125/59
== END 2018-07-03 10:10 | disposition home or self-care (01) ==
LOC: ED 08:15 → ED-I 09:30 → ED 10:10
PROVIDERS: Family Medicine
DX: S70.02XA Contusion of left hip, initial encounter (principal); I48.91 Unspecified atrial fibrillation; I11.0 Hypertensive heart disease with heart failure; I50.9 Heart failure, unspecified; W18.11XA Fall from or off toilet without subsequent striking against object, initial encounter; Z79.01 Long term (current) use of anticoagulants; R53.1 Weakness; R42 Dizziness and giddiness

== ENCOUNTER 2018-09-06 13:59 | Emergency (ER) | payer MEDICARE ==
[~2018-09-06] VITALS: Ht 175.3 cm; Wt 90.0 kg
[~2018-09-06 13:59] MED LIST changes: +ARNUITY EL100 MCG/AC IN; +IMDUR PO; +MONTELUKAST SOD10 MG PO
[2018-09-06] MEDS ORDERED: ULTRAM50 M1 PO (16:13)
[2018-09-06 16:47] VITALS: BP 124/60
== END 2018-09-06 17:00 | disposition home or self-care (01) ==
LOC: ED 13:59
DX: S80.12XA Contusion of left lower leg, initial encounter (principal); I11.0 Hypertensive heart disease with heart failure; I50.9 Heart failure, unspecified; I48.91 Unspecified atrial fibrillation; W19.XXXA Unspecified fall, initial encounter; Y93.89 Activity, other specified; Y92.009 Unspecified place in unspecified non-institutional (private) residence as the place of occurrence of the external cause; M79.605 Pain in left leg; M79.89 Other specified soft tissue disorders

== ENCOUNTER 2018-09-20 11:40 | Emergency (ER) | payer MEDICARE ==
[~2018-09-20] VITALS: Ht 175.3 cm; Wt 89.1 kg
[~2018-09-20 11:40] MED LIST changes: +ULTRAM50 M1 PO
[2018-09-20 12:19] LABS: HEMATOCRIT 35.3 % (37.0-47.0); HEMOGLOBIN 11.3 g/dl (12.0-16.0); IMMATURE GRANULOCYTES 0.7 % (0.0-5.0); MEAN CORPUSCULAR HGB 36.8 pG CALC (26.0-32.0); NEUT# 3.81 thou/uL (2.00-7.15); RED BLOOD COUNT 3.07 mill/uL (4.20-5.60); RED CELL DISTRI WIDTH 14.2 % (11.5-15.5)
[2018-09-20 12:29] LABS: ALBUMIN 4.1 g/dL (3.2-5.0); ALKALINE PHOSPHATASE 62 u/l (38-126); ANION GAP 13 (6-22 (CALC)); BUN 16 mg/dL (8-23); BUN/CREATININE RATIO 18 (12-20 (CALC)); CARBON DIOXIDE 28 mmol/l (22-30); CHLORIDE 104 mmol/l (95-108); CREATININE 0.9 mg/dL (0.5-1.0); GFR 60 ML/MIN (>=60 (CALC)); GFR FOR AFR.AMER. > 60 ML/MIN (>=60 (CALC)); POTASSIUM 4.3 mmol/l (3.5-5.1); SGOT/AST 17 u/l (9-36); SODIUM 140 mmol/l (137-146); TOTAL PROTEIN 6.6 g/dL (6.3-8.2)
[2018-09-20 12:43] LABS: INTERNATIONAL NORMALIZED RATIO 2.1 RATIO (0.7-1.3); PROTHROMBIN TIME 21.7 SECONDS (9.0-12.5)
[2018-09-20 13:30] VITALS: BP 132/60
== END 2018-09-20 13:30 | disposition home or self-care (01) ==
LOC: ED 11:40
PROVIDERS: Family Medicine
DX: K64.8 Other hemorrhoids (principal); I48.91 Unspecified atrial fibrillation; I10 Essential (primary) hypertension; Z79.01 Long term (current) use of anticoagulants

== ENCOUNTER 2019-02-12 08:33 | Inpatient (IN) | payer MEDICARE ==
[~2019-02-12] VITALS: Ht 175.3 cm; Wt 89.5 kg
--- NOTE | 2019-02-12 08:38 | NUR ---
PT TO ROOM VIA EMS
[2019-02-12 09:30] LABS: HEMATOCRIT 31.9 % (37.0-47.0); HEMOGLOBIN 9.8 g/dl (12.0-16.0); IMMATURE GRANULOCYTES 0.3 % (0.0-5.0); MEAN CELL VOLUME 110.8 fL CALC (80.0-100.0); MEAN CORPUSCULAR HGB CONC 30.7 g/L CALC (32.0-36.0); RED BLOOD COUNT 2.88 mill/uL (4.20-5.60); RED CELL DISTRI WIDTH 13.8 % (11.5-15.5)
--- NOTE | 2019-02-12 09:36 | NUR ---
PT RESTING ON STRETCHER; NO S/S OF DISTRESS NOTED; PT STATES PAIN HAS IMPROVED SLIGHTLY; PT DENIES NEED FOR MORPHINE OR ANY NARCOTIC MEDICATIONS; MONITORING DEVICES IN PLACE; VSS; WILL CONTINUE TO MONITOR
[2019-02-12] MEDS ORDERED: SINEMET CR PO (09:45)
[2019-02-12] MEDS ORDERED: VITAMIN B-121000 MCG PO (09:45)
[2019-02-12 09:46] LABS: ANION GAP 13 (6-22 (CALC)); BUN 21 mg/dL (8-23); BUN/CREATININE RATIO 31 (12-20 (CALC)); CARBON DIOXIDE 27 mmol/l (22-30); CHLORIDE 101 mmol/l (95-108); CREATININE 0.7 mg/dL (0.5-1.0); GFR > 60 ML/MIN (>=60 (CALC)); GFR FOR AFR.AMER. > 60 ML/MIN (>=60 (CALC)); POTASSIUM 3.9 mmol/l (3.5-5.1); SODIUM 137 mmol/l (137-146)
[2019-02-12] MEDS ORDERED: MEMANTINE HCL10 MG PO (09:46)
[2019-02-12 09:57] LABS: INTERNATIONAL NORMALIZED RATIO 1.7 RATIO (0.7-1.3)
--- NOTE | 2019-02-12 10:22 | NUR ---
DR HARRIS AT BEDSIDE TO DISCUSS FINDINGS AND POC
--- NOTE | 2019-02-12 10:41 | NUR ---
Implementation Engineer called by ED Staff stating MD wants Patient placed in SNF for pelvic fracture - Patient has Medicare and would require a 3 midnight qualifying stay as a qualifying Inpatient diagnosis meeting Medicare criteria for such. Pelvic fracture meets observational status. Implementation Engineer explained that Patient can go to an SNF and pay privately, or if MD really feels need to admit Patient, she can be discharged home with Home Health services once discharged by MD on Med Surg Unit.
--- NOTE | 2019-02-12 11:00 | NUR ---
VALOR SPLINT APPLIED TO LEFT FOREARM; PT TOLERATED WELL; VSS; PT DENIES ANY NEEDS AT THIS TIME; CALL LIGHT WITHIN REACH; WILL CONTINUE TO MONITOR
--- NOTE | 2019-02-12 12:00 | NUR ---
MEAL TRAY PROVIDED; NO S/S OF DISTRESS NOTED; VSS; WILL CONTINUE TO MONITOR
--- NOTE | 2019-02-12 12:37 | NUR ---
SBAR PRINTED TO FLOOR
--- NOTE | 2019-02-12 13:00 | NUR ---
PT REPOSITIONED FOR COMFORT AT THIS TIME; UPDATED ON CONTINUED WAIT TIME FOR ADMISSION; WILL CONTINUE TO MONITOR
--- NOTE | 2019-02-12 14:25 | NUR ---
PATIENT TRANSPORTED TO [facility]
[2019-02-12 14:35] VITALS: BP 129/69
--- NOTE | 2019-02-12 15:00 | NUR ---
PT ARRIVES TO MED/SURG VIA STRETCHER, ASSISTED INTO BED WITH PLASTIC SLIDER. PT WITH DISCOMFORT TO PUBIS AREA WITH MOVEMENT ONLY. LEFT ARM WITH ORTHOGLASS AND SLING IN PLACE. PURWICK PLACED. PT DENIES NEED FOR PAIN MEDICATION.
--- NOTE | 2019-02-12 18:11 | NUR ---
PT HAS BEEN SET UP FOR DINNER, CONTINUES TO DENY NEED FOR PAIN MEDICINE.
[2019-02-12 19:08] VITALS: BP 140/65
--- NOTE | 2019-02-12 21:31 | NUR ---
PT DENIES PAIN AT THIS TIME. PUREWICK IS IN PLACE, BUT PT REPORTS FEELING LIKE SHE NEEDS TO GO, BUT CANNOT. NO URINE VISIBLE IN PUREWICK SUCTION CONTAINER.
--- NOTE | 2019-02-12 22:00 | NUR ---
PT REPORTS NOT BEING ABLE TO URINATE. BLADDER SCAN 535CC OF URINE RECORDED/PHYSICIAN NOTIFIED. PT ASKING FOR TYLENOL FOR PAIN IN HER LEFT SHOULDER, DENIED NEED FOR STRONGER MEDICATION. WILL CONTINUE TO MONITOR. ASSISTED PT IN REPOSITIONING FOR COMFORT AND WATCHING TV. CALL LIGHT PLACED NEAR HAND FOR SAFETY AND PT ENCOURAGED TO CALL ANY NEEDS ARISE. ASSISTED W/PO FLUIDS AT THIS TIME PRIOR TO LEAVING ROOM
--- NOTE | 2019-02-12 23:00 | NUR ---
ORDERS RECEIVED FOR INSERTION OF CORTEZ CATHETER. 16GA CATHETER PLACED AT THIS TIME. PT TOLERATED WELL. 500CC OF DARK YELLOW URINE IMMEDIATELY OUTPUT AT THIS TIME. PT REPOSITIONED AND ASSISTED W/PO FLUIDS. PT DENIES ANY OTHER NEEDS AT THIS TIME. CALL LIGHT W/IN REACH.
[2019-02-13] VITALS (7 sets, daily range): BP systolic 108–156; BP diastolic 51–79
--- NOTE | 2019-02-13 01:47 | NUR ---
PT APPEARS TO BE SLEEPING AT THIS TIME. NO S/O DISTRESS NOTED. CALL LIGHT AT SIDE
--- NOTE | 2019-02-13 03:10 | NUR ---
PT SLEEPING AT THIS TIME. NO S/O DISTRESS NOTED. CALL LIGHT W/IN REACH
--- NOTE | 2019-02-13 06:19 | NUR ---
PT MEDICATED FOR PAIN IN LEFT SHOULDER AND HIPS. ASSISTED PT REPOSITIONING AND DRINKING PO FLUIDS AND FINDING NEWS ON TV. DENIES ANY OTHER NEEDS. CALL LIGHT AT SIDE.
--- NOTE | 2019-02-13 08:00 | NUR ---
PT SEEN AT REST IN THE BED, NO DISTRESS, PRIVATE CAREGIVER LAURITA AT BEDSIDE. LUNGS ARE CLEAR, RA. CORTEZ CATHETER HAS BEEN PLACED, DRAINS RABIA URINE. MONITOR SHOWS CONTROLLED AFIB.
[2019-02-13] MEDS ORDERED: DILTIAZEM120 M1 PO (10:04)
--- NOTE | 2019-02-13 12:00 | NUR ---
PT PROVIDED MILK OF MAGNESIA IN PRUNE JUICE FOR NO BM IN 3 DAYS. PHYSICAL THERAPY HAS WORKED WITH PT. CAREGIVER REMAINS AT BEDSIDE.
--- NOTE | 2019-02-13 16:16 | NUR ---
PT ABLE TO BE HELPED TO BSC FOR BM MOM AND PRUNE JUICE HAVE WORKED. PT MEDICATED FOR LEFT SHOULDER DISCOMFORT WITH TYLENOL.
--- NOTE | 2019-02-13 19:15 | NUR ---
ASSESSMENT COMPLETED. IV SITE PATENT AND INFUSING ORDERED IVF WELL. DENIES NEEDS/PAIN. DECLINES WANTING TO BE REPOSITIONED AT THIS TIME. LEFT ARM IN FIBERGLASS CAST WITH JEN WRAP INTACT. PT. WITH GOOD CAPILLARY REFILL. PT. ENCOURAGED TO CALL FOR ANY NEEDS. CALL LIGHT IS IN REACH. WILL CONTINUE TO MONITOR.
--- NOTE | 2019-02-13 20:00 | NUR ---
NOTIFIED ANNALISE ROSE OF ELEVATED TEMP OF 100.8 AND OF TYLENOL ADMINISTRATION. ORDERS RECEIVED FOR UA AND TO CARRY THIS OUT.
[2019-02-13] MEDS ORDERED: SINEMET 25/1001 TA2 PO (20:38)
--- NOTE | 2019-02-13 21:14 | NUR ---
NOTIFIED ANNALISE ROSE OF ELEVATED TEMP OF 102.4 AFTER REASSESSMNT OF TYLENOL. PRESCRIBOR DENIES WANTING BLOOD CULTURES AT THIS TIME. AWAITING UA AND ORDERS RECEIVED FOR INCENTIVE SPIROMETRY AND EDUCATED PT. AND PT. GAVE RETURN DEMONSTRATION AND PULLING 500 GOAL SET TO 750 AND INSTRUCTED TO USE 10X'S AN HOUR WHILE AWAKE. ICE PACK APPLIED TO LEFT SHOULDER PER ORDER. COOL WASH CLOTH APPLIED TO FOREHEAD TO ASSIST WITH TEMP. AND BLANKET REMOVED. PT. C/O RIGHT TOOTH PAIN AND LEFT ARM PAIN, MEDICATED WITH ORDERED LORTAB, WILL REASSESS. PO FLUIDS OFFERED. CALL LIGHT IS IN REACH. WILL CONTINUE TO MONITOR.
[2019-02-13 21:27] LABS: URINE BILIRUBIN - DIPSTICK NEGATIVE (NEGATIVE); URINE BLOOD DIPSTICK MODERATE (NEGATIVE); URINE COLOR YELLOW; URINE GLUCOSE - DIPSTICK 500 mg/dL (NEGATIVE); URINE KETONE NEGATIVE (NEGATIVE); URINE LEUK ESTERASE NEGATIVE (NEGATIVE); URINE NITRITE - DIPSTICK NEGATIVE (Negative); URINE PH 6.5 (4.5-8.0); URINE PROTEIN - DIPSTICK NEGATIVE (NEG-TRACE); URINE SPECIFIC GRAVITY 1.015
[2019-02-13 21:42] LABS: URINE SQUAMOUS EPITHELIAL CELL FEW EPI/hpf (0-FEW)
--- NOTE | 2019-02-13 23:27 | NUR ---
PT. RESTING IN BED ASLEEP; VSS; PT. REPOSITIONED AND PO FLUIDS OFFERED. DENIES NEEDS. CALL LIGHT IS IN REACH.
--- NOTE | 2019-02-14 02:00 | NUR ---
RESTING IN BED WITH EYES CLOSED. NO DISTRESS NOTED. RESP. EVEN AND UNLABORED.
[2019-02-14 04:25] VITALS: BP 135/77
--- NOTE | 2019-02-14 04:28 | NUR ---
VS OBTAINED AND ARE STABLE. NO DISTRESS NOTED. PT. AWOKE FORGETFUL OF PLACE AND RE-ORIENTED EASILY. PT. C/O GUERRA AND LEFT ARM PAIN AND MEDICATED WITH ORDERED PRN LORTAB; WILL REASSESS. CALL LIGHT IS IN REACH.
[2019-02-14 05:22] LABS: HEMATOCRIT 32.1 % (37.0-47.0); HEMOGLOBIN 9.9 g/dl (12.0-16.0); IMMATURE GRANULOCYTES 0.4 % (0.0-5.0); MEAN CELL VOLUME 109.9 fL CALC (80.0-100.0); MEAN CORPUSCULAR HGB 33.9 pG CALC (26.0-32.0); MEAN CORPUSCULAR HGB CONC 30.8 g/L CALC (32.0-36.0); NEUT# 5.4 thou/uL (2.00-7.15); RED BLOOD COUNT 2.92 mill/uL (4.20-5.60); RED CELL DISTRI WIDTH 13.8 % (11.5-15.5)
[2019-02-14 05:29] LABS: INTERNATIONAL NORMALIZED RATIO 1.5 RATIO (0.7-1.3); PROTHROMBIN TIME 15.4 SECONDS (9.0-12.5)
[2019-02-14 05:41] LABS: ANION GAP 9 (6-22 (CALC)); BUN 18 mg/dL (8-23); BUN/CREATININE RATIO 32 (12-20 (CALC)); CARBON DIOXIDE 27 mmol/l (22-30); CHLORIDE 104 mmol/l (95-108); CREATININE 0.6 mg/dL (0.5-1.0); GFR > 60 ML/MIN (>=60 (CALC)); GFR FOR AFR.AMER. > 60 ML/MIN (>=60 (CALC)); MAGNESIUM 2.4 mg/dL (1.6-2.3); POTASSIUM 4.3 mmol/l (3.5-5.1); SODIUM 136 mmol/l (137-146)
--- NOTE | 2019-02-14 06:30 | NUR ---
CORTEZ EMTPIED OF 200MLS OF DARK RABIA URINE AND THEN CORTEZ REMOVED PER ORDER. TIP INTACT AND PT. TOLERATED WELL. SATURNINO CARE GIVEN. NEW ICE PACK APPLIED TO LEFT SHOULDER.
[2019-02-14 08:00] VITALS: BP 118/66
--- NOTE | 2019-02-14 08:00 | NUR ---
PT AWAKE, ALERT, ORIENTED X 3. PT ASSISTED WITH BREAKFAST SETUP, ATE WELL. NO COMPLAINT OF PAIN PER FRACTURES. ICE BAG TO LEFT SHOULDER. PRIMO HOSE APPLIED.
--- NOTE | 2019-02-14 10:47 | NUR ---
PT WAS SEEN FOR FUNCTIONAL ACTIVITY AND THEREX. CO-TREATED WITH RODERICK TOLEDO/Raquel. PT WAS ABLE TO SCOOT ON BED AND USE R UE TO SHORT-SITTING FROM LONG- SITTING WITH MIN A FROM THERAPIST TO PULL DRAW SHEET AND POSITION HER ON EDGE OF BED. SHE THEN STS WITH VERBAL CUES AND MIN A FROM THERAPIST TO HELP NAVIGATE THE L SIDE HANDLE OF RW. SHE THEN TOOK ~5 STEPS TO TRANSFER FROM BED TO RECLINER ON THE SIDE OF BED W/ RW AND MIN A WBAT ON L LE. PT THEN PERFORMED SEATED HEEL RAISES X 20 REPS; SHORT-ARC QUADS SETS X 5 SH X 10 REPS BILATERALLY. PT WILL REQUIRE A PLATFORM WALKER FOR SAFE AMBULATION. THIS WAS COMMUNICATED WITH COST MANAGER WHO THEN ACKNOWLEDGED. ALSO, SHE WILL BE AT HIGH RISK OF FALLING CONSIDERING FX ON L UE AND LE, R EYE BLINDNESS AND HEARING IMPAIRMENT. HER [facility] SCORED 11 POINTS INDICATING THAT IT WILL BE OF PT'S UTMOST BENEFIT TO BE PLACED IN AN IN-PT REHAB.
--- NOTE | 2019-02-14 12:00 | NUR ---
PT WITH FEVER OF 101.1 AN HOUR AGO, PROVIDED TYLENOL, NOW 100.0. PT DENIES PAIN EXCEPT FOR LEFT SHOULDER, ICE PACK APPLIED.
[2019-02-14 12:06] VITALS: BP 118/64
[2019-02-14 15:40] VITALS: BP 102/68
--- NOTE | 2019-02-14 16:00 | NUR ---
PT WITH SOME CONFUSION TODAY, EASILY REORIENTED. PT SEEN BY DR CRANDALL, WILL BE DISCHARGED TO HOME WITH HOME HEALTH PER UNABLE TO QUALIFY HER AN ADMIT. PT CONTINUES TO REST IN THE BED WITHOUT EVIDENCE FOR DISTRESS.
--- NOTE | 2019-02-14 18:20 | NUR ---
PT'S NEPHEW AT BEDSIDE. DISCUSSION RELATED PT'S NOT BEING ADMITTABLE AND THEREFORE NOT ABLE TO BE DISCHARGED TO REHAB FROM HOSPITAL. PT AND NEPHEW WITH MANY QUESTIONS, CASE MGMT TO CONTINUE EDUCATION IN AM REGARDING PLAN OF CARE, I.E., HOME HEALTH.
[2019-02-14 18:46] VITALS: BP 133/76
--- NOTE | 2019-02-14 20:00 | NUR ---
PATIENT RESTING IN BED AT THIS TIME WITH HOB ELEVATED. PATIENT IS ALERT AND ORIENTEDX3. PATIENT WITH ICE PACK TO LEFT SHOULDER. SALINE LOCK TO LEFT FOREARM INTACT AND APPEARS HEALTHY. TELE MONITOR IN PLACE. SAFETY PRECAUTIONS REINFORCED. CALL LIGHT IN REACH. WILL CONT TO MONITOR,
--- NOTE | 2019-02-14 22:58 | NUR ---
PATIENT ASSISTED OOB TO BSC TO VOID 250CC OF FOUL SMELLING CLOUDY URINE. PATIENT ASSISTED BACK TO BED. SATURNINO-CARE WAS GIVEN BY CONTROL ROOM SUPERVISOR. SAFETY PRECAUTIONS REINFORCED. CALL LIGHT IN REACH. WILL CONT TO MONITOR.
[2019-02-15] VITALS: BP 107/60
--- NOTE | 2019-02-15 01:53 | NUR ---
PATIENT APPEARS SLEEPING AT THIS TIME-EYES ARE CLOSED. RESP ARE EVEN AND UNLABORED. CALL LIGHT IN REACH. WILL CONT TO MONITOR.
[2019-02-15 04:00] VITALS: BP 125/75
--- NOTE | 2019-02-15 05:00 | NUR ---
APPEARS SLEEPING AT THIS TIME WITH EYES CLOSED. RESP ARE EVEN ANDUNLABORED. CALL LIGHT IN REACH. WILL CONT TO MONITOR.
[2019-02-15 05:56] LABS: HEMOGLOBIN 9.6 g/dl (12.0-16.0); IMMATURE GRANULOCYTES 0.6 % (0.0-5.0); MEAN CELL VOLUME 109.2 fL CALC (80.0-100.0); MEAN CORPUSCULAR HGB 33.8 pG CALC (26.0-32.0); NEUT# 4.85 thou/uL (2.00-7.15); RED BLOOD COUNT 2.84 mill/uL (4.20-5.60); RED CELL DISTRI WIDTH 13.8 % (11.5-15.5)
[2019-02-15 06:15] LABS: INTERNATIONAL NORMALIZED RATIO 1.4 RATIO (0.7-1.3); PROTHROMBIN TIME 14.5 SECONDS (9.0-12.5)
[2019-02-15 06:24] LABS: ANION GAP 11 (6-22 (CALC)); BUN 17 mg/dL (8-23); BUN/CREATININE RATIO 30 (12-20 (CALC)); CARBON DIOXIDE 25 mmol/l (22-30); CHLORIDE 103 mmol/l (95-108); CREATININE 0.6 mg/dL (0.5-1.0); GFR > 60 ML/MIN (>=60 (CALC)); GFR FOR AFR.AMER. > 60 ML/MIN (>=60 (CALC)); MAGNESIUM 2.5 mg/dL (1.6-2.3); POTASSIUM 4.1 mmol/l (3.5-5.1); SODIUM 135 mmol/l (137-146)
[2019-02-15 07:14] VITALS: BP 140/82
--- NOTE | 2019-02-15 09:22 | NUR ---
PT SEEN AWAKE, ALERT, ORIENTED X 3. LUNGS CLEAR, RA. PT STATES SOME DISCOMFORT WHEN SHE MOVES, OTHERWISE NO PAIN IN PUBIS AREA. PT WAS HUNGRY, ATE ALL OF BREAKFAST THIS MORNING.
--- NOTE | 2019-02-15 12:00 | NUR ---
PT SEEN IN BED, NO DISTRESS, NO COMPLAINTS. CAREGIVER LAURITA AT BEDSIDE.
[2019-02-15 12:21] VITALS: BP 108/63
[2019-02-15 15:17] VITALS: BP 127/68
--- NOTE | 2019-02-15 16:00 | NUR ---
PT NOW WILL BE ADMITTED FOR FEVER OF UNKNOWN ORIGIN, PAVING THE WAY FOR REHAB THAT WAS SUGGESTED. PT AND FAMILY RELIEVED THEY DID NOT KNOW HOW THEY WOULD BE ABLE TO HELP HER. PT MEDICATED WITH TRAMADOL FOR LEFT SHOULDER PAIN.
[2019-02-15 21:16] VITALS: BP 121/71
--- NOTE | 2019-02-15 22:30 | NUR ---
PATIENT RESTING IN BED AT THIS TIME. PATIENT IS ALERT AND ORIENTEDX3 WHEN SPOKEN TO. PATIENT DIDN'T EAT MUCH OF HER DINNER. TEMP WAS 101 AND PATIENT WAS MEDICATED WITH TYLENOL 650MG PO GIVEN. SPLINT TO LEFT WRIST INTACT AND CMS TO FINGERS WNL. ABLE TO MOVE FINGERS, THEY ARE WARM TO TOUCH AND WITHOUT ANY NUMBNESS. CONT TO USE ICE PACKS TO LEFT SHOULDER ON AND OFF FOR COMFORT. IV SITE TO RIGHT WRIST INTACT AND APPEARS HEALTHY AT THIS TIME. CALL LIGHT IN REACH. WILL CONT TO MONITOR. \
[2019-02-16 00:40] VITALS: BP 115/72
--- NOTE | 2019-02-16 02:15 | NUR ---
PATIENT RESTING IN BED WITH HOB ELEVATED. C/O LEFT SHOULDER PAIN. ICE PACK APPLIED TO AFFECTED AREA. MEDICATED WITH TYLENOL 650MG PO GIVEN FOR PAIN. SPLINT TO LEFT LOWER ARM INTACT-CMS TO FINGERS WNL. SAFETY PRECAUTIONS REINFORCED. CALL LIGHT IN REACH. WILL CONT TO MONITOR.
[2019-02-16 04:30] VITALS: BP 116/65
--- NOTE | 2019-02-16 05:23 | NUR ---
PATIENT RESTING IN BED AT THIS TIME-APPEARS SLEEPING WITH EYES CLOSED. RESP ARE EVEN AND UNLABORED. TELE MONITOR IN PLACE. CALL LIGHT IN REACH. WILL CONT TO MONITOR.
[2019-02-16 07:30] VITALS: BP 135/78
--- NOTE | 2019-02-16 07:30 | NUR ---
ASSESSMENT IS COMPLETED: IV SITE IS FREE FROM REDNESS OR EDEMA. HR IS REG,PULSES ARE STRONG X4, ABD IS SOFT WITH ACTIVE BS, BREATH SOUNDS ARE CLEAR, BILATERALLY, LEFT SHOULDER, HAND , DRESSING IS CDI. TELE MONITOR IN PLACE.
[2019-02-16 11:12] VITALS: BP 128/71
--- NOTE | 2019-02-16 12:45 | NUR ---
PT IS RELAXING IN BED WITH NO DISTRESS NOTED. IV SITE IS FREE FROM REDNESS OR EDEMA.
--- NOTE | 2019-02-16 15:55 | NUR ---
PT TRANSPORTED TO HAVE AN CXR COMPLETED. VIA WC
[2019-02-16 16:00] VITALS: BP 129/80
--- NOTE | 2019-02-16 16:09 | NUR ---
PT RETURNED FROM [facility] ANO DISTRESS NOTED IV SITE IS FREE FROM REDNESS OR EDEMA. FAMILY HAS CALLED TO CHECK ON HER.
--- NOTE | 2019-02-16 19:33 | NUR ---
PATIENT RESTING IN BED WITH HOB ELEVATED TALKING ON THE PHONE. ALERT AND ORIENTEDX3. SPLINT TO LEFT FOREARM INTACT-[facility] CHECKS WNL. TELE MONITOR IN PLACE. SALINE LOCK TO RIGHT WRIST INTACT AND APPEARS HEALTHY AT THIS TIME. SAFETY PRECAUTIONS REINFORCED. CALL LIGHT IN REACH. WILL CONT TO MONITOR.
[2019-02-16 19:38] VITALS: BP 143/67
--- NOTE | 2019-02-16 20:30 | NUR ---
PATIENT RESTING IN FUY-BUGO-465.8, C/O LEFT SHOULDER PAIN. PATIENT MEDICATED WITH TYLENOL 650MG PO FOR PAIN AND TEMP. NO BM SINCE 02/13. PATIENT GIVEN PRUNE JUICE AND 1/2 DOSE OF MOM-THAT WAS ALL THE PATIENT WOULD TAKE FOR CONSTIPATION. SAFETY PRECAUTIONS REINFORCED. CALL LIGHT IN REACH. WILL CONT TO MONITOR.
--- NOTE | 2019-02-17 | NUR ---
PATIENT RESTING IN BED WITH HOB ELEVATED AND EYES CLOSED. RESP ARE EVEN AND UNLABORED. TELE MONITOR IN PLACE. CALL LIGHT IN REACH. WILL CONT TO MONITOR.
[2019-02-17 02:22] VITALS: BP 108/59
--- NOTE | 2019-02-17 02:25 | NUR ---
PATIENT RESTING IN BED-ASSISTED OOB TO THE [facility] TO VOID CLOUDY FOUL SMEELING URINE. DENIES ANY PAIN UPON URINATION AT THIS TIME. ASSISTED BACK TO BED. SPLINT TO LEFT ARM REMAINS INTACT. LEFT UPPER ARM SWELLING NOTED. ICE PACK APPLIED ON AND OFF ORDERED. CMS TO LEFT FINGERS IS WNL. TELE MONITOR IN PLACE. SALINE LOCK TO RIGHT WRIST INTACT. AFEBRILE AT THIS TIME. PATIENT VERBALIZES CONCERNS ABOUT HER DISCHARGE AND WHEN IT WILL HAPPENED. PATIENT WAS TOLD THAT CASE MANAGMENT WOULD BE IN THIS MORNING AND HOPEFULLY THEY COULD GIVE HER AN IDEA OF WHAT THE PLAN MAY BE. SAFETY PRECAUTIONS REINFORCED. CALL LIGHT IN REACH. WILL CONT TO MONITOR.
--- NOTE | 2019-02-17 02:30 | NUR ---
PATIENT APPEARS SLEEPING AT THIS ITME WITH HOB ELEVATED AND EYES CLOSED. RESP ARE EVEN AND UNLABORED. CALL LIGHT IN REACH. WILL CONT TO ANEOF0T.
--- NOTE | 2019-02-17 02:56 | NUR ---
PATIENT RESTING IN BED-C/O LEFT SHOULDER PAIN-MEDICATED WITH TYLENOL 650MG PO FOR 8/10 PAIN SCALE. SAFETY PRECAUTIONS REINFORCED. CALL LIGHT IN REACH. WILL CONT TO MONITOR.
[2019-02-17 04:02] VITALS: BP 119/58
--- NOTE | 2019-02-17 05:06 | NUR ---
APPEARS SLEEPING WITH HOB ELEVATED AND EYES CLOSED. RESP ARE EVEN AND UNLABORED. TELE MONITOR IN PLACE. CALL LIGHT IN REACH. WILL CONT TO MONITOR.
[2019-02-17 07:55] VITALS: BP 143/72
--- NOTE | 2019-02-17 07:55 | NUR ---
ASSESSMENT IS COMPLETED: IV SITE IS FREE FROM REDNESS OR EDEMA. HR IS REG,PULSES ARE STRONG X4,ABD IS SOFT WITH ACTIVE BS. BREATH SOUNDS ARE CLEAR BILATERAL. TELE MONITOR IN PLACE. CONTINUE TO OBSERVE AND MONITOR.
[2019-02-17 08:40] LABS: INTERNATIONAL NORMALIZED RATIO 1.5 RATIO (0.7-1.3); PROTHROMBIN TIME 15.1 SECONDS (9.0-12.5)
[2019-02-17 10:42] VITALS: BP 108/53
--- NOTE | 2019-02-17 10:46 | NUR ---
AMPA: 13 POINTS - IN-PT REHAB PLACEMENT SUPINE TO SIT WITH MODIFIED INDEP. SCOOTING ON EOB WITH MIN A. STS WITH MIN A. PT THEN AMBULATED FROM BED TO THE OTHER SIDE OF ROOM ~15 FT W/ RW AND MIN A WHILE THERAPIST NAVIGATES L SIDE HANDLE OF RW. PT WAS MORE TOLERANT ON AMB AND DID NOT REPORT PAIN ON L HIP. SHE HOWEVER REPORTS PAIN AND INABILITY TO MOVE L UE. SHE SAFELY AND INDEPENDENTLY SAT IN THE RECLINER. P.T. ELEVATED LEG REST. NO ADVERSE RXNS NOTED OR REPORTED AT THE END OF TX.
--- NOTE | 2019-02-17 12:30 | NUR ---
PT IS RELAXING IN THE CHAIR, NO DISTRESS NOTED. IV SITE IS FREE FROM REDNESS OR EDEMA.
[2019-02-17 12:47] LABS: URINE BILIRUBIN - DIPSTICK NEGATIVE (NEGATIVE); URINE BLOOD DIPSTICK NEGATIVE (NEGATIVE); URINE CLARITY CLEAR; URINE COLOR YELLOW; URINE GLUCOSE - DIPSTICK 500 mg/dL (NEGATIVE); URINE KETONE NEGATIVE (NEGATIVE); URINE LEUK ESTERASE NEGATIVE (Negative); URINE NITRITE - DIPSTICK NEGATIVE (Negative); URINE PROTEIN - DIPSTICK NEGATIVE (NEG-TRACE); URINE SPECIFIC GRAVITY 1.015; URINE UROBILINOGEN - DIPSTICK 0.2 E.U./dL (0.2)
[2019-02-17] MEDS ORDERED: KEFLEX500 M1 PO (15:17)
[2019-02-17 15:53] VITALS: BP 106/69
--- NOTE | 2019-02-17 15:53 | NUR ---
IV SITE INFILTRATED. NEW ORDERS RECEIVED FOR ORAL ABT AND DISCHARGE TELEMETRY. OK TO NOT RESTART IV START AT THIS TIME. PT VERBALIZED UNDERSTANDING.
[2019-02-17 18:44] VITALS: BP 128/65
--- NOTE | 2019-02-17 20:00 | NUR ---
PATIENT RESTING IN BED AT THIS TIME WITH HOB ELEVATED-AWAKE ALERT ANDORIENTEDX3. PATIENT VOICING CONCERNS REGUARDING DISCHARGE AND WANTING TO GO HOME FIRST THING IN THE [place]. ALLOWED PATIENT TO VENT CONCERNS-TOLD THAT CASE MANAGEMENT WOULD BE BACK IN THE MORNING TO CONT TO WORK ON DISCHARGE PLANNING. SAFETY PRECAUTIONS REINFORCED. CALL LIGHT IN REACH. WILL CONT TOO MONITOR..
[2019-02-18 03:56] VITALS: BP 122/75
--- NOTE | 2019-02-18 03:59 | NUR ---
PATIENT ASSIST TO BSC AND BACK TO BED. REPOSITIONED IN BED. C/O LEFT SHOULDER PAIN-8/10 ON PAIN SCALE. MEDICATED WITH TYLENOL 650MG PO. ASSISTED PATIENT WITH IS-NEEDS ENCOURAGEENT WITHUSING THE DEVICE. SAFETY PRECAUTIONS REINFORCED. CALL LIGHT IN REACH. WILL CONT TO MONITOR.
[2019-02-18 07:35] VITALS: BP 117/65
--- NOTE | 2019-02-18 07:35 | NUR ---
PT SITTING IN BED. A& O X3. NO DISTRESS NOTED. IS AT BEDSIDE. ASSISTED THE PT WITH USING IS. EXPLAINED TO THE PT THAT IT SHOULD BE USED 10X EVERY HOUR WHILE AWAKE AND IF ASSISTANCE WAS NEEDED TO CALL. ASSESSMENT COMPLETED AT THIS TIME. CALL LIGHT IN REACH. CONTINUE TO MONITOR.
--- NOTE | 2019-02-18 08:40 | NUR ---
PT SITTING IN RECLINER EATING BREAKFAST AND WATCHING TV. NO OTHER NEEDS AT THIS TIME. CONTINUE TO MONITOR.
--- NOTE | 2019-02-18 09:57 | NUR ---
OCCUPATIONAL THERAPY AT BEDSIDE
--- NOTE | 2019-02-18 10:54 | NUR ---
Pt. seated in chair as therapist enters room. Pt. agreed to participate in therapy, but stated she was a little tired and would do what she could. Initiated session w/ x 15 kne flexion followed w/ x 20 ankle pumps. Pt. executed sit>stand x 5 times along w/ 1 min static standing w/ slight weight shift to invilved lower extremity. VC for proper hand placement as she ascends to a standing position and descends to a seated position. Pt LUE was above wrist as exiting room per OT request, tray table and call light by pt. side as therapist exited room.
--- NOTE | 2019-02-18 12:55 | NUR ---
PT LAYING DOWN IN BED WITH FAMILY MEMBER AT BEDSIDE. NO NEEDS AT THIS TIME. CALL LIGHT IN REACH CONTINUE TO MONITOR.
[2019-02-18 15:51] VITALS: BP 130/80
--- NOTE | 2019-02-18 17:27 | NUR ---
PT RESTING IN BED WITH FAMILY MEMBER AT BEDSIDE. CONTINUE TO MONITOR
[2019-02-18 18:42] VITALS: BP 118/74
--- NOTE | 2019-02-18 19:28 | NUR ---
PATIENT RESTING IN BED WITH HOB ELEVATED. AWAKE ALERT AND ORIENTEDX3. SPLINT TO LEFT LOWER FOREARM INTACT. CMS TO LEFT FINGERS WNL. PATIENT C/O LEFT SHOULDER PAIN-12/05-REQUESTING TYLENOL. TYLENOL 650MG PO GIVEN. PATIENT CONT TO VOICE CONCERNS REGUARDING HOSPITAL STAY. ALLOWED PATIENT TO VOICE CONCERNS. SAFETY PRECAUTIONS REINFORCED. CALL LIGHT IN REACH. WILL CONT TO MONITOR.
--- NOTE | 2019-02-18 21:00 | NUR ---
PATIENT ASSISTED OOB TO THE BSC AND HAD MOD AMT OF BROWN STOOL. ASSISTED BACK TO BED. SPLINT TO LEFT FOREARM INTACT. CMS CHECKS WNL. CALL LIGHT IN REACH. WILL CONT TO MONITOR.
--- NOTE | 2019-02-19 | NUR ---
PATIENT WITH HOB ELEVATED EYES CLOSED. APPEARS SLEEPING AT THIS ITME. CALL LIGHT IN REACH. WILL CONT TO MONITOR.
--- NOTE | 2019-02-19 02:57 | NUR ---
PATIENT RESTING IN BED-C/O 10/05 PAIN TO LAFT SHOULDER. MEDICATED WITH TYLENOL 650MG POFOR PAIN. SPLINT TO LEFT FOREARM INTACT AND CMS TO LEFT FINGERS WNL. SAFETY PRECAUTIONS REINFORCED. CALL LIGHT IN REACH. WILL CONT TO MONITOR.
[2019-02-19 04:25] VITALS: BP 127/69
[2019-02-19 07:56] VITALS: BP 123/72
--- NOTE | 2019-02-19 07:56 | NUR ---
PT SITTING UP IN RECLINER CHAIR EATING BREAKFAST. ASSESSMENT COMPLETED. PT C/O 5/10 LEFT ARM PAIN. WILL MEDICATE PT WITH MORNING MEDS. POC DISCUSSED WITH PT. PT VERBALIZES UNDERSTANDING. WILL CONTINUE TO MONITOR. CALL LIGHT IN REACH.
--- NOTE | 2019-02-19 12:00 | NUR ---
PT SITTING UP IN BED, EATING LUNCH. NO C/O AT THIS TIME. WILL CONTINUE TO MONITOR. CALL LIGHT IN REACH.
[2019-02-19 15:15] VITALS: BP 115/67
--- NOTE | 2019-02-19 15:42 | NUR ---
DR CRANDALL AND SYDNEY SHAY AT BEDSIDE.
--- NOTE | 2019-02-19 17:00 | NUR ---
CAREGIVER AND FRIEND AT BEDSIDE. PT SITTING UP IN BED. CAREGIVER WANTING UPDATE OF D/C STATUS TO REHAB? INFORMED CAREGIVER LAURITA IF SHE IS NOT POA, MINIMAL UPDATE CAN BE GIVEN. SPOKE WITH [employer] SHE WILL SPEAK WITH CAREGIVER AND PT. CALL LIGHT IN REACH.
[2019-02-19 19:40] VITALS: BP 137/77
--- NOTE | 2019-02-19 20:40 | NUR ---
PT RESTING IN BED, NO SIGNS OF DISTRESS NOTED, RESP EVEN AND UNLABORED. PT ALERT AND ORIENTED X3, PT BLIND IN RT EYE, KEEPS PARTIALLY CLOSED. L ARM IN SPLINT, DRESSING CDI, ARM ELEVATED ON PILLOW. EDEMA NOTED. ASSESSMENT COMPLETED, CALL LIGHT IN REACH,CONTINUE TO MONITOR.
--- NOTE | 2019-02-20 00:50 | NUR ---
PT RESTING IN BED, C/O PAIN TO L ARM 10/05, ATTEMPTED TO GIVE PT ULTRAM, PT REFUSED. TYLENOL GIVEN. CALL LIGHT IN REACH,CONTINUE TO MONITOR.
--- NOTE | 2019-02-20 04:08 | NUR ---
LAB AT BEDSIDE FOR AM DRAW. CALL LIGHT IN REACH,CONTINUE TO MONITOR.
[2019-02-20 04:47] LABS: HEMATOCRIT 30.9 % (37.0-47.0); HEMOGLOBIN 9.6 g/dl (12.0-16.0); IMMATURE GRANULOCYTES 0.3 % (0.0-5.0); MEAN CELL VOLUME 106.9 fL CALC (80.0-100.0); MEAN CORPUSCULAR HGB 33.2 pG CALC (26.0-32.0); MEAN CORPUSCULAR HGB CONC 31.1 g/L CALC (32.0-36.0); NEUT# 3.66 thou/uL (2.00-7.15); RED BLOOD COUNT 2.89 mill/uL (4.20-5.60); RED CELL DISTRI WIDTH 13.7 % (11.5-15.5)
[2019-02-20 04:57] LABS: INTERNATIONAL NORMALIZED RATIO 1.7 RATIO (0.7-1.3); PROTHROMBIN TIME 17.8 SECONDS (9.0-12.5)
[2019-02-20 04:59] LABS: ANION GAP 12 (6-22 (CALC)); BUN 17 mg/dL (8-23); BUN/CREATININE RATIO 31 (12-20 (CALC)); CARBON DIOXIDE 27 mmol/l (22-30); CHLORIDE 103 mmol/l (95-108); CREATININE 0.6 mg/dL (0.5-1.0); GFR > 60 ML/MIN (>=60 (CALC)); GFR FOR AFR.AMER. > 60 ML/MIN (>=60 (CALC)); MAGNESIUM 2.4 mg/dL (1.6-2.3); POTASSIUM 4.4 mmol/l (3.5-5.1); SODIUM 137 mmol/l (137-146)
[2019-02-20 05:00] VITALS: BP 115/70
[2019-02-20 07:28] VITALS: BP 149/82
[2019-02-20 08:03] VITALS: BP 149/82
--- NOTE | 2019-02-20 08:03 | NUR ---
PT IS SITTING IN THE RECLINER. ASSESSMENT DONE. PT IS A&O X3. PT STATED PAIN IN LEFT ARM. MEDICATED PT WITH TYLENOL. LEFT ARM IN SPLINT. RESPS EVEN AND UNLABORED. NO IV SITE AT THIS TIME. PT DENIES ANY OTHER NEEDS AT THIS TIME. CALL LIGHT IN REACH .
--- NOTE | 2019-02-20 12:00 | NUR ---
PT IS EATING HER LUNCH WITH NO S/S OF DISTRESS NOTED. REMOVED PT LEFT ARM SPLINT AND ELEVATED PT ARM IN PILLOWS. CALL LIGHT IN REACH.
--- NOTE | 2019-02-20 14:15 | NUR ---
ANNALISE SPENCE APPLIED A NEW SPLINT TO PT LEFT ARM.
--- NOTE | 2019-02-20 14:35 | NUR ---
Discharge instructions given. Patient verbalizes understanding of same. Discharged in stable condition via Wheelchair to *Other with family AND STAFF. All belongings sent with pt.
--- NOTE | 2019-02-20 15:14 | NUR ---
REPORT GIVEN TO MAHESH FROM [facility].
== END 2019-02-20 14:35 | DRG 536 ==
LOC: ED 08:33 → ED-I 10:16 → ED 10:57 → ED-I 10:58 → MS2 10:58
PROVIDERS: Family Medicine; Internal Medicine; Nurse Practitioner Family; ADMIT Internal Medicine; ATTEND Internal Medicine
PROC: 2W3DX1Z Immobilization of Left Lower Arm using Splint (ICD-10-PCS; principal; 2019-02-12)
PROC: 0T9B70Z Drainage of Bladder with Drainage Device, Via Natural or Artificial Opening (ICD-10-PCS; 2019-02-12)
DX: S32.502A Unspecified fracture of left pubis, initial encounter for closed fracture (principal); S52.502A Unspecified fracture of the lower end of left radius, initial encounter for closed fracture; I42.9 Cardiomyopathy, unspecified; I48.20 Chronic atrial fibrillation, unspecified; S40.012A Contusion of left shoulder, initial encounter; S43.402A Unspecified sprain of left shoulder joint, initial encounter; I11.0 Hypertensive heart disease with heart failure; I50.9 Heart failure, unspecified; H54.62 Unqualified visual loss, left eye, normal vision right eye; H40.9 Unspecified glaucoma; G20 Parkinson's disease; M62.81 Muscle weakness (generalized); R33.9 Retention of urine, unspecified; R26.9 Unspecified abnormalities of gait and mobility; R50.9 Fever, unspecified; W01.0XXA Fall on same level from slipping, tripping and stumbling without subsequent striking against object, initial encounter; Y92.009 Unspecified place in unspecified non-institutional (private) residence as the place of occurrence of the external cause; Z91.81 History of falling; Z79.01 Long term (current) use of anticoagulants; Z87.891 Personal history of nicotine dependence

== ENCOUNTER 2019-03-31 15:20 | Observation (INO) | payer MEDICARE ==
[~2019-03-31] VITALS: Ht 175.3 cm; Wt 87.2 kg
[~2019-03-31 15:20] MED LIST changes: +DILTIAZEM120 M1 PO; +KEFLEX500 M1 PO; +MEMANTINE HCL10 MG PO; +SINEMET 25/1001 TA2 PO; +SINEMET CR PO
[2019-03-31 16:00] VITALS: BP 139/66
[2019-03-31 17:26] LABS: HEMATOCRIT 32.6 % (37.0-47.0); HEMOGLOBIN 10.1 g/dl (12.0-16.0); IMMATURE GRANULOCYTES 0.5 % (0.0-5.0); MEAN CELL VOLUME 103.5 fL CALC (80.0-100.0); MEAN CORPUSCULAR HGB 32.1 pG CALC (26.0-32.0); NEUT# 5.79 thou/uL (2.00-7.15); RED BLOOD COUNT 3.15 mill/uL (4.20-5.60); RED CELL DISTRI WIDTH 16.4 % (11.5-15.5)
[2019-03-31 17:57] LABS: INTERNATIONAL NORMALIZED RATIO 3.7 RATIO (0.7-1.3); PROTHROMBIN TIME 36.1 SECONDS (9.0-12.5)
[2019-03-31 18:05] LABS: ALBUMIN 3.7 g/dL (3.2-5.0); ALKALINE PHOSPHATASE 62 u/l (38-126); BUN 21 mg/dL (8-23); BUN/CREATININE RATIO 30 (12-20 (CALC)); CARBON DIOXIDE 28 mmol/l (22-30); CHLORIDE 102 mmol/l (95-108); CREATININE 0.7 mg/dL (0.5-1.0); GFR > 60 ML/MIN (>=60 (CALC)); GFR FOR AFR.AMER. > 60 ML/MIN (>=60 (CALC)); SGOT/AST 24 u/l (9-36); SODIUM 137 mmol/l (137-146); TOTAL PROTEIN 6.8 g/dL (6.3-8.2)
[2019-03-31 18:14] LABS: ANION GAP 12 (6-22 (CALC)); BILIRUBIN, TOTAL 0.8 mg/dL (0.0-1.4); POTASSIUM 5.2 mmol/l (3.5-5.1)
[2019-03-31 19:16] VITALS: BP 104/57
[2019-03-31 21:26] LABS: URINE BILIRUBIN - DIPSTICK NEGATIVE (NEGATIVE); URINE BLOOD DIPSTICK TRACE-INTACT (NEGATIVE); URINE COLOR YELLOW; URINE GLUCOSE - DIPSTICK NEGATIVE (NEGATIVE); URINE KETONE NEGATIVE (NEGATIVE); URINE NITRITE - DIPSTICK NEGATIVE (Negative); URINE PROTEIN - DIPSTICK NEGATIVE (NEG-TRACE); URINE SPECIFIC GRAVITY >=1.030
[2019-03-31 21:31] LABS: URINE LEUK ESTERASE SMALL (NEGATIVE)
[2019-03-31 21:37] LABS: URINE SQUAMOUS EPITHELIAL CELL FEW EPI/hpf (0-FEW)
[2019-04-01 03:37] VITALS: BP 133/65
[2019-04-01 07:27] VITALS: BP 119/73
[2019-04-01 09:41] LABS: INTERNATIONAL NORMALIZED RATIO 3.1 RATIO (0.7-1.3); PROTHROMBIN TIME 31.1 SECONDS (9.0-12.5)
[2019-04-01 10:18] LABS: ANION GAP 13 (6-22 (CALC)); BUN 17 mg/dL (8-23); BUN/CREATININE RATIO 24 (12-20 (CALC)); CARBON DIOXIDE 24 mmol/l (22-30); CHLORIDE 105 mmol/l (95-108); CREATININE 0.7 mg/dL (0.5-1.0); GFR > 60 ML/MIN (>=60 (CALC)); GFR FOR AFR.AMER. > 60 ML/MIN (>=60 (CALC)); MAGNESIUM 2.2 mg/dL (1.6-2.3); POTASSIUM 4.2 mmol/l (3.5-5.1); SODIUM 137 mmol/l (137-146)
[2019-04-01 11:32] VITALS: BP 117/58
[2019-04-01 15:21] VITALS: BP 98/53
[2019-04-01 18:43] VITALS: BP 127/69
[2019-04-02 03:38] VITALS: BP 116/67
[2019-04-02 08:58] VITALS: BP 140/79
[2019-04-02 11:44] VITALS: BP 102/92
[2019-04-02 13:59] LABS: INTERNATIONAL NORMALIZED RATIO 2.3 RATIO (0.7-1.3); PROTHROMBIN TIME 23.2 SECONDS (9.0-12.5)
[2019-04-02 16:06] VITALS: BP 144/68
[2019-04-02 18:33] VITALS: BP 116/58
[2019-04-02 21:09] VITALS: BP 122/78
== END 2019-04-02 21:20 ==
LOC: MS2 15:20
PROVIDERS: Nurse Practitioner Family; ADMIT Internal Medicine; ATTEND Internal Medicine
DX: G20 Parkinson's disease (principal); M62.81 Muscle weakness (generalized); I11.0 Hypertensive heart disease with heart failure; I50.9 Heart failure, unspecified; D64.9 Anemia, unspecified; R79.1 Abnormal coagulation profile; T45.515A Adverse effect of anticoagulants, initial encounter; H40.9 Unspecified glaucoma; H54.61 Unqualified visual loss, right eye, normal vision left eye; I42.9 Cardiomyopathy, unspecified; I48.21 Permanent atrial fibrillation; Z87.891 Personal history of nicotine dependence; Z79.01 Long term (current) use of anticoagulants; Z91.81 History of falling
CPT/HCPCS: G0378; G0379

== ENCOUNTER 2020-02-19 17:28 | Observation (INO) | payer MEDICARE, MEDICAID ==
[~2020-02-19] VITALS: Ht 167.6 cm; Wt 84.1 kg
--- NOTE | 2020-02-19 17:30 | NUR ---
PATIENT TO ROOM WITH A STEADY GAIT.
--- NOTE | 2020-02-19 18:00 | NUR ---
PT RESTING ON STRETCHER IN NAD. RESP EVEN AND UNLABORED. SKIN WARM AND DRY. CARDIAC MONTIOR IN PLACE SHOWING AFIB. VERBALIZES NO NEEDS AT THIS TIME. CALL LIGHT WITHIN REACH.
[2020-02-19 18:42] LABS: IMMATURE GRANULOCYTES 0.3 % (0.0-5.0); MEAN CORPUSCULAR HGB 34.1 pG CALC (26.0-32.0); MEAN CORPUSCULAR HGB CONC 30.9 g/dL CAL (32.0-36.0); NEUT# 2.43 thou/uL (2.00-7.15); RED BLOOD COUNT 3.67 mill/uL (4.20-5.60); RED CELL DISTRI WIDTH 13.6 % (11.5-15.5)
[2020-02-19 18:45] LABS: HEMATOCRIT 40.5 % (37.0-47.0); HEMOGLOBIN 12.5 g/dl (12.0-16.0); MEAN CELL VOLUME 110.4 fL CALC (80.0-100.0)
--- NOTE | 2020-02-19 18:50 | NUR ---
PT REPORT GIVEN TO CHAVEZ RADER. CARE RELINQUISHED.
[2020-02-19 19:02] LABS: ALBUMIN 4.1 g/dL (3.2-5.0); ALKALINE PHOSPHATASE 48 u/l (38-126); AMYLASE 71 u/l (30-110); ANION GAP 10 (6-22 (CALC)); BILIRUBIN, TOTAL 0.5 mg/dL (0.0-1.4); BUN 18 mg/dL (8-23); BUN/CREATININE RATIO 26 (12-20 (CALC)); CARBON DIOXIDE 27 mmol/l (22-30); CHLORIDE 104 mmol/l (95-108); CREATININE 0.7 mg/dL (0.5-1.0); GFR > 60 ML/MIN (>=60 (CALC)); GFR FOR AFR.AMER. > 60 ML/MIN (>=60 (CALC)); LIPASE 45 u/l (23-300); POTASSIUM 4.3 mmol/l (3.5-5.1); SGOT/AST 20 u/l (9-36); SODIUM 137 mmol/l (137-146); TOTAL PROTEIN 7.1 g/dL (6.3-8.2)
[2020-02-19 19:14] LABS: MYOGLOBIN 30 ng/mL (0 - 62)
[2020-02-19 19:16] LABS: INTERNATIONAL NORMALIZED RATIO 1.5 RATIO (0.7-1.3); PROTHROMBIN TIME 14.2 SECONDS (9.0-12.5)
--- NOTE | 2020-02-19 19:41 | NUR ---
NSR NO ECTOPY NO ST T CHANGES DENIES CP OR PAIN OF ANY SOURCE.W/P/D SKIN.WARM BLANKET APPLIED AT PTS REQUEST
--- NOTE | 2020-02-19 20:25 | NUR ---
W/P/D SKIN NO C/O PAIN NO SOB NO NAUSEA.
--- NOTE | 2020-02-19 21:25 | NUR ---
W/D SKIN CONT A FIB NO C/O PAIN NO SOB OR NAUSEA.
--- NOTE | 2020-02-19 22:25 | NUR ---
PHONE REPORT TO NURSE HUI ON MS2W
--- NOTE | 2020-02-19 22:30 | NUR ---
PT TRANSPORTED VIA STRETCHER ON TELE IN PAINFREE STABLE CONDITION
--- NOTE | 2020-02-19 22:33 | NUR ---
PT ARRIVED TO FLOOR VIA STRETCHER ACCOMPAINED BY ER STAFF. PT ALERT AND ORIENTED X3. AMBULATORY FROM STRETCHER TO BED WITH WALKER. SNACK PROVIDED UPON REQUEST. IV SITE APPEARS HEALTHY, FLUSHED WELL. PT CONTINENT OF BOWEL AND BLADDER, STATES SOME STRESS INCONTINENCE WEARS BRIEF. PT STATES SHE LIVES AT HOME WITH CAREGIVER. SKIN INTACT. ADVERTISING ANALYST IN PLACE. DISCUSSED POC AND FALL RISK PRECAUTIONS. PT VERBALIZED UNDERSTANDING. PT ORIENTED TO ROOM AND CALL LIGHT SYSTEM. CALL LIGHT WITHIN REACH. WILL CONTINUE TO MONITOR.
[2020-02-19 22:35] VITALS: BP 147/74
--- NOTE | 2020-02-19 23:43 | NUR ---
ASSISTED PT TO BATHROOM. PT AMBULATES WITH WALKER WITH STEADY GAIT. STAND BY ASSIST. PT VOIDED WITHOUT DIFFICULTY. YELLOW CLEAR OUTPUT NOTED. PT BACK INTO BED. NO CURRENT WANTS OR NEEDS. CALL LIGHT WITHIN REACH. WILL CONTINUE TO MONITOR.
[2020-02-20 00:08] VITALS: BP 153/98
--- NOTE | 2020-02-20 03:50 | NUR ---
PT RESTING IN BED WITH EYES CLOSED. RESPIRATIONS EVEN AND UNLABORED. NO APPARENT DISTRESS NOTED. FORM BUILDING SUPERVISOR IN PLACE. CALL LIGHT WITHIN REACH. WILL CONTINUE TO MONITOR.
[2020-02-20 04:50] VITALS: BP 134/67
[2020-02-20 06:51] LABS: INTERNATIONAL NORMALIZED RATIO 1.5 RATIO (0.7-1.3)
[2020-02-20] MEDS ORDERED: ESCITALOPRAM OX10 MG PO (07:37)
[2020-02-20] MEDS ORDERED: WELLBUTRIN XL150 MG PO (07:38)
[2020-02-20 08:20] VITALS: BP 129/97
--- NOTE | 2020-02-20 08:20 | NUR ---
RECIEVED REPORT FROM RFAAELA MCDONNELL. PT RESTING IN SEMI FOWLERS POSITION UPON ENTERING ROOM. INTRODUCED SELF TO PT AND DISCUSSED POC. PT IS A/O X3. ASSESSMENT AND VITALS COMPLETED.RESPIRATIONS ARE EVEN AND UNLABORED ON ROOM AIR. DIMINISHED CRACKLES UPON ALSCULTATION OF LUNGS. HEART RHYTHM IRREGULAR WITH TELE IN PLACE, AFIB PER ER MONITORING. BOWEL SOUNDS ACTIVE, LAST REPORTED BM 02/19/20. RADIAL AND PEDAL PULSES ARE STRONG. #20G IN RIGHT HAND FLUSHED, SITE APPEARS HEALTHY AND PATENT. PT HAS HISTORY OF LEFT MASTECTOMY, LIMB ALERT BRACLET APPLIED.PT IS BLIND IN RIGHT EYE. PT DENIES OF ANY PAINS OR DISCOMFORTS AT THIS TIME. ALL SAFETY AND ISOALATION PRECAUTIONS ARE IN PLACE WITH CALL LIGHT IN REACH. WILL CONTINUE TO MONITOR.
--- NOTE | 2020-02-20 10:00 | NUR ---
DR WHITE AT BEDSIDE
[2020-02-20 10:58] VITALS: BP 128/86
--- NOTE | 2020-02-20 12:58 | NUR ---
PT COMPLAINS OF 9/10 HEAD ACH. TYLNEOL TO BE ADMINISTERED. RESPIRATIONS REMAINS EVEN AND UNLABORED ON ROOM AIR. TELE MONITORING IN PLACE. PT DENIES ANY OTHER NEEDS OR DISCOMFORTS. ALL SAFTEY PRECAUTIONS ARE IN PLACE WITH CALL LIGHT IN REACH. WILL CONTINUE TO MONITOR
[2020-02-20 15:00] VITALS: BP 105/54
--- NOTE | 2020-02-20 16:22 | NUR ---
PT SLEEPING IN LOW FOWLERS POSITION. RESPIRATIONS ARE EVEN AND UNLABORED ON ROOM AIR. PT DENIES OF ANY PAINS OR DISCOMFORTS. ALL SAFETY PRECAUTIONS ARE IN PLACE WITH CALL LIGHT IN REACH.AIR/CONTACT PRECAUTIONS IN PLACE. WILL CONTINUE TO MONITOR
[2020-02-20 19:00] VITALS: BP 108/46
--- NOTE | 2020-02-20 19:10 | NUR ---
REPORT FROM YASMIN RUSSO. ASSUMED PT CARE.
--- NOTE | 2020-02-20 21:35 | NUR ---
PT MEDICATED ORDERED. NO APPARENT DISTRESS NOTED. COMMERCIAL ATTACHE IN PLACE. IV SITE APPEARS HEALTHY. PT C/O HEADACHE, MEDICATED WITH PRN APAP AT THIS TIME. PT DENIES ANY CP OR SOB. VSS. FRESH ICE WATER PROVIDED. PT DENIES ANY OTHER CURRENT WANTS OR NEEDS. CALL LIGHT WITHIN REACH. WILL CONTINUE TO MONITOR.
[2020-02-21] VITALS (7 sets, daily range): BP systolic 110–137; BP diastolic 54–78
--- NOTE | 2020-02-21 00:36 | NUR ---
PT RESTING IN BED WITH EYES CLOSED. RESPIRATIONS EVEN AND UNLABORED. NO APPARENT DISTRESS NOTED. DISPLAY DESIGNER IN PLACE. CALL LIGHT WITHIN REACH. WILL CONTINUE TO MONITOR.
--- NOTE | 2020-02-21 04:07 | NUR ---
PT RESTING IN BED WITH EYES CLOSED. RESPIRATIONS EVEN AND UNLABORED. NO APPARENT DISTRESS NOTED. SUPERVISOR LOOPING IN PLACE. CALL LIGHT WITHIN REACH. WILL CONTINUE TO MONITOR.
[2020-02-21 05:52] LABS: MEAN CELL VOLUME 109.9 fL CALC (80.0-100.0); MEAN CORPUSCULAR HGB 33.8 pG CALC (26.0-32.0); MEAN CORPUSCULAR HGB CONC 30.8 g/dL CAL (32.0-36.0); NEUT# 1.63 thou/uL (2.00-7.15); RED BLOOD COUNT 3.55 mill/uL (4.20-5.60); RED CELL DISTRI WIDTH 13.7 % (11.5-15.5)
[2020-02-21 06:27] LABS: ALBUMIN 3.3 g/dL (3.2-5.0); ALKALINE PHOSPHATASE 45 u/l (38-126); ANION GAP 9 (6-22 (CALC)); BILIRUBIN, TOTAL 0.3 mg/dL (0.0-1.4); BUN 23 mg/dL (8-23); BUN/CREATININE RATIO 31 (12-20 (CALC)); C-REACTIVE PROTEIN 3.6 mg/dL (0-0.9); CARBON DIOXIDE 26 mmol/l (22-30); CHLORIDE 106 mmol/l (95-108); CREATININE 0.7 mg/dL (0.5-1.0); GFR > 60 ML/MIN (>=60 (CALC)); GFR FOR AFR.AMER. > 60 ML/MIN (>=60 (CALC)); POTASSIUM 4.2 mmol/l (3.5-5.1); SGOT/AST 18 u/l (9-36); SODIUM 137 mmol/l (137-146); TOTAL PROTEIN 5.7 g/dL (6.3-8.2)
[2020-02-21 06:42] LABS: INTERNATIONAL NORMALIZED RATIO 1.6 RATIO (0.7-1.3); PROTHROMBIN TIME 15.7 SECONDS (9.0-12.5)
--- NOTE | 2020-02-21 07:39 | NUR ---
RECIEVED REPORT FROM RAFAELA HUI. PT RESTING IN SEMI FOWLERS POSITION UPON ENTERING ROOM. INTRODUCED SELF TO PT AND DISCUSSED POC. PT IS A/O X3 BUT FORGETFUL. ASSESSMENT AND VITALS COMPLETED. BP 116/68, HR 79, O2 95% ON ROOM AIR. RESPIRATIONS ARE EVEN AND UNLABORED. LUNG SOUNDS ARE CLEAR. HEART RHYTHM IR IRREGULAR WITH TELE IN PLACE. BOWEL SOUNDS ARE ACTIVE. RADIAL AND PEDAL PULSES STRONG. #20G IN RH FLUSHED, SITE APPERS HEALTHY AND PATENT. PT COMPLAINS OF 10/10 LEFT ARM PAIN. MOLD MACHINE OPERATOR ASKED IF TYLENOL ADMINISTERED BY ASSEMBLY AND PACKING SUPERVISOR HELPED. PT STATED "IT HELPED WITH MY HEAD BUT NOT MY ARM. " MOLD MACHINE OPERATOR ATTEMPTED TO REPOSITION, PT REFUSED. MD TO BE NOTFIED OF PAIN.LEFT LIMB ALERT DUE TO MASTECTOMY. PT IS BLIND IN RIGHT EYE. PT DENEIS OF ANY OTHER PAINS OR NEEDS AT THIS TIME. ALL SAFETY AND ISOALTION PRECAUTIONS ARE IN PLACE WITH CALL LIGHT INR EACH. WILL CONTINUE TO MONITOR
--- NOTE | 2020-02-21 09:24 | NUR ---
DR WHITE AT BEDSIDE
--- NOTE | 2020-02-21 11:58 | NUR ---
PT RESTING IN HIGH MATHIAS POSITION EATING LUNCH. RESPIRATIONS ARE EVEN AND UNLABORED ON ROOM AIR. PT DENIES OF ANY PAINS OR DISCOMFORTS AT THIS TIME.TELE MONITORING OIN PLACE, AFIB PER ER MONITORING. ALL SAFETY AND ISOALTION PRECAUTIONS REMAINS IN PLACE. WILL CONTINUE TO MONITOR
--- NOTE | 2020-02-21 12:41 | NUR ---
PT ASKING ABOUT DISCHARGE. ORACLE DEVELOPER INFORMED PT OF NOT HAVING DISCHARGE ORDERS AT THIS TIME. PT STATES THAT CAREGIVER HAD TOLD HER " YOU HAVE TO STAY 14 MORE DAYS." ORACLE DEVELOPER INFORMED PT THAT DISCHARGED IS YET TO BE SET AND CM WAS WORKING ON DISCHARGE PANNING.PT INFORMED ORACLE DEVELOPER THAT SHE WAS SUPPOSE TO BE GOING TO [facility] BUT THEN STATED " I WILL NEED TO GO HOME AND GET MY STUFF. IM NOT GOING ANY WHERE BUT HOME. I STAY IN MY [place]LINER AT HOME WHILE MY CAREGIVER IS IN TOWN. I DONT SHOWER OR GET UP IF IM ALONE. IM ALL IN MY RIGHT MIND. " ORACLE DEVELOPER EXPRESSED UNDERSTANDING. BLAKE AND NOTFIED OF PT STATMENTS.
--- NOTE | 2020-02-21 15:29 | NUR ---
PT COMPLAINS OF 5/10 LEFT ARM PAIN. ULTRAM ADMINISTERED. RESPIRATIONS REMAINS EVEN AND UNALBORED ON ROOM. TELE MONITORING IN PLACE. PT DENIES OF ANY OTHER NEEDS AT THIS TIME.WILL CONTINUE TO MONITOR
--- NOTE | 2020-02-21 15:58 | NUR ---
LINDSAY CALLED REQUESTING UPDATE. PASSCODE PROVIDED. UPDATE PROVIDED.
--- NOTE | 2020-02-21 19:10 | NUR ---
REPORT FROM YASMIN RUSSO. ASSUMED PT CARE.
--- NOTE | 2020-02-21 22:25 | NUR ---
PT MEDICATED WITH PRN APAP FOR HEADACHE. PRUNES JUICE ALSO PROVIDED UPON REQUEST. NO APPARENT DISTRESS NOTED. CALL LIGHT WITHIN REACH. WILL CONTINUE TO MONITOR.
--- NOTE | 2020-02-22 01:25 | NUR ---
PT RESTING IN BED WITH EYES CLOSED. RESPIRATIONS EVEN AND UNLABORED. NO APPARENT DISTRESS NOTED. DIRECTOR OF PHYSICAL SECURITY IN PLACE. CALL LIGHT WITHIN REACH. WILL CONTINUE TO MONITOR.
[2020-02-22 04:30] VITALS: BP 122/69
[2020-02-22 05:26] LABS: INTERNATIONAL NORMALIZED RATIO 1.8 RATIO (0.7-1.3); PROTHROMBIN TIME 17.1 SECONDS (9.0-12.5)
--- NOTE | 2020-02-22 05:34 | NUR ---
PT RESTING IN BED WITH EYES CLOSED. RESPIRATIONS EVEN AND UNLABORED. NO APPARENT DISTRESS NOTED. AIR TOOL OPERATOR IN PLACE. CALL LIGHT WITHIN REACH. WILL CONTINUE TO MONITOR.
[2020-02-22 07:38] VITALS: BP 113/67
--- NOTE | 2020-02-22 07:38 | NUR ---
RECIEVED REPORT FROM RAFAELA HUI. PT RESTING IN SEMI FOWLERS POSITION UPON ENTERING ROOM. INTRODUCED SELF TO PT AND DISCUSSED POC. PT IS A/O X3 BUT FORGET AT TIMES. RESPRIATIONS ARE EVEN AND UNLABORED ON ROOM AIR. HEART RHYTHM IS IRREGULAR WITH TELE IN PLACE, AFIB PER ER MONITORING. BOWEL SOUNDS ARE ACTIVE IN ALL QUADRANTS, LAST REPORTED BM 02/19/2020.MOM TO BE ADMINISTERED. RADIAL AND PEDAL PULSES ARE STRONG.#20G IN RH FLUSHED, SITE APPEARS HEALTHY AND PATENT. PT EDUACTED ON NEED OF CHANGING IF NOT DISCHARGED. PT VERBALIZED UNDERSTANDING.PT COMPLAINS OF 5/10 PAIN IN LEFT ARM. PT TO BE MEDICATED PER EMAR. PT DENIES OF ANY OTHER DISCOMFORTS OR NEEEDS. ALL SAFTEY AND ISOLATION PRECAUTIONS ARE IN PLACE WITH CALL LIGHT IN REACH. WILL CONTINUE TO MONITOR
--- NOTE | 2020-02-22 08:53 | NUR ---
MOM ADMINISTERED WITH MORNING MEDS. PT TOLERATED WELL
--- NOTE | 2020-02-22 10:13 | NUR ---
DR WHITE AT BEDSIDE
[2020-02-22 11:00] VITALS: BP 113/66
[2020-02-22 15:44] VITALS: BP 95/51
--- NOTE | 2020-02-22 15:53 | NUR ---
PT SLEEPING IN SEMI FOWLERS POSITION. RESPRIATIONS ARE EVEN AND UNLABORED ON ROOM AIR. NO SIGNS OF ANY PAINS OR DISTRESS AT THIS TIME. ALL SAFETY AND ISOLATION PRECAUTIONS ARE IN PLACE WITH CALL LIGHT IN REACH. WILL CONTINUE TO MONITOR.
[2020-02-22 18:56] VITALS: BP 118/52
--- NOTE | 2020-02-22 19:00 | NUR ---
NEW #20G IN RIGHT HAND STARTED, SITE APPEARS HEALTHY AND PATENT. OLD #20G IN HAND REMOVED. PT TOLERATED WELL
--- NOTE | 2020-02-22 19:04 | NUR ---
REPORT FROM YASMIN RUSSO. ASSUME PT CARE.
--- NOTE | 2020-02-22 20:16 | NUR ---
PT MEDICATED ORDERED. NO APPARENT DISTRESS NOTED. SALESFORCE ADMINISTRATOR IN PLACE. IV SITE APPEARS HEALTHY. PT C/O HEADACHE, MEDICATED WITH PRN APAP AT THIS TIME. PT DENIES ANY CP OR SOB. VSS. FRESH ICE WATER PROVIDED. PT DENIES ANY OTHER CURRENT WANTS OR NEEDS. CALL LIGHT WITHIN REACH. WILL CONTINUE TO MONITOR.
[2020-02-23] VITALS: BP 143/59
--- NOTE | 2020-02-23 00:45 | NUR ---
PT RESTING IN BED WITH EYES CLOSED. RESPIRATIONS EVEN AND UNLABORED. NO APPARENT DISTRESS NOTED. ASSEMBLER TRIM IN PLACE. CALL LIGHT WITHIN REACH. WILL CONTINUE TO MONITOR.
[2020-02-23 04:00] VITALS: BP 137/74
--- NOTE | 2020-02-23 04:04 | NUR ---
PT ASSISTED TO BATHROOM. PT AMBULATES WITH WALKER AND STAND BY ASSIST, STEADY GAIT NOTED. VOIDED 300 ML WITHOUT DIFFICULTY. BACK INTO BED. PT DENIES ANY PAIN OR DISCOMFORT. CALL LIGHT WITHIN REACH. WILL CONTINUE TO MONITOR.
[2020-02-23 05:58] LABS: HEMATOCRIT 40.5 % (37.0-47.0); HEMOGLOBIN 12.4 g/dl (12.0-16.0); IMMATURE GRANULOCYTES 0.3 % (0.0-5.0); MEAN CELL VOLUME 110.7 fL CALC (80.0-100.0); MEAN CORPUSCULAR HGB 33.9 pG CALC (26.0-32.0); MEAN CORPUSCULAR HGB CONC 30.6 g/dL CAL (32.0-36.0); NEUT# 2.03 thou/uL (2.00-7.15); RED BLOOD COUNT 3.66 mill/uL (4.20-5.60); RED CELL DISTRI WIDTH 13.3 % (11.5-15.5)
[2020-02-23 06:28] LABS: ALBUMIN 3.5 g/dL (3.2-5.0); ALKALINE PHOSPHATASE 50 u/l (38-126); ANION GAP 7 (6-22 (CALC)); BILIRUBIN, TOTAL 0.4 mg/dL (0.0-1.4); BUN 26 mg/dL (8-23); BUN/CREATININE RATIO 39 (12-20 (CALC)); C-REACTIVE PROTEIN 4.1 mg/dL (0-0.9); CARBON DIOXIDE 31 mmol/l (22-30); CHLORIDE 104 mmol/l (95-108); CREATININE 0.7 mg/dL (0.5-1.0); GFR > 60 ML/MIN (>=60 (CALC)); GFR FOR AFR.AMER. > 60 ML/MIN (>=60 (CALC)); POTASSIUM 4.8 mmol/l (3.5-5.1); SGOT/AST 19 u/l (9-36); SODIUM 137 mmol/l (137-146)
[2020-02-23 06:34] LABS: D-DIMER 0.27 mg/L (0.19-0.60)
[2020-02-23 06:36] LABS: INTERNATIONAL NORMALIZED RATIO 1.9 RATIO (0.7-1.3); PROTHROMBIN TIME 18.3 SECONDS (9.0-12.5)
--- NOTE | 2020-02-23 07:00 | NUR ---
REPORT RECEIVED FROM RAFAELA HUI.
--- NOTE | 2020-02-23 07:08 | NUR ---
PT note Patient is screened for PT intervention and she may benefitfrom consult if medical agrees
[2020-02-23 08:29] VITALS: BP 152/80
--- NOTE | 2020-02-23 08:30 | NUR ---
PT RESTING IN SEMI FOWLERS POSITION,A&O X3 WITH FORGETFULNESS NOTED AT TIMES;VS OBTAINED AND ASSESSMENT COMPLETED;PT DENIES ANY CURRENT PAIN OR DISCOMFORTS,PAIN SCALE AND REPORTING EDUCATED;RESPIRATIONS EVEN AND UNLABORED ON RA,DIMINISHED LUNG SOUNDS;NON-PRODUCTIVE COUGH;ABDOMEN SOFT ON PALPATION AND ACTIVE IN ALL 4 QUADRANTS;WEAK PEDAL PULSES;SKIN INTACT;#20G TO RH FLUSHED AND PATENT,SITE APPEARS HEALTHY;PT REMAINS IN AIR/CONTACT PRECAUTIONS;PT DENIES ANY CURRENT NEEDS AT THIS TIME AND IS ENCOURAGED TO CALL FOR ASSISTANCE IF NEEDED;FALL PRECAUTIONS IN PLACE WITH BED IN THE LOWEST POSITION AND CALL LIGHT IN REACH;WILL CONTINUE TO MONITOR
--- NOTE | 2020-02-23 09:36 | NUR ---
AT BEDSIDE DISCUSSING POC.
[2020-02-23 10:30] VITALS: BP 111/45
--- NOTE | 2020-02-23 12:10 | NUR ---
PT RESTING IN SEMI FOWLERS POSITION;RESPIRATIONS EVEN AND UNLABORED ON RA;PT DENIES ANY CURRENT PAIN OR DISCOMFORTS;IV SITE PATENT;TELE MONITORING IN PLACE;PT EXPRESSES WISHES TO GO HOME AND REPORTS THAT SHE DOES NOT WISH TO GO TO REHAB, CASE MANAGEMENT TO BE NOTIFIED;PT DENIES ANY ADDITIONAL NEEDS AND IS ENCOURAGED TO CALL FOR ASSISTANCE IF NEEDED;FALL PRECAUTIONS IN PLACE WITH BED IN THE LOWEST POSITION AND CALL LIGHT IN REACH;WILL CONTINUE TO MONITOR
--- NOTE | 2020-02-23 13:49 | NUR ---
PHYSICAL THERAPY AT BEDSIDE
--- NOTE | 2020-02-23 14:25 | NUR ---
PT TRANSPORTED TO [facility] IN STABLE CONDITION VIA WHEELCHAIR ACCOMPANIED BY SUSY MATTHEWS.
--- NOTE | 2020-02-23 14:51 | NUR ---
PT RETURNED BACK TO MED/SURG ROOM 291 IN STABLE CONDITION VIA WHEELCHAIR ACCOMPANIED BY SUSY LESLIE.
[2020-02-23 15:00] VITALS: BP 120/49
--- NOTE | 2020-02-23 15:00 | NUR ---
PT REPORTS HEADACHE PAIN RATING 10/10 ON THE PAIN SCALE AND REQUESTS PAIN MEDICATION,PT MEDICATED WITH PRN TYLENOL 650MG PO;WILL CONTINUE TO MONITOR FOR EFFECTIVENESS
--- NOTE | 2020-02-23 16:25 | NUR ---
PT APPEARS TO BE SLEEPING IN SEMI FOWLERS POSITION;NO S/S OF DISTRESS NOTED;RESPIRATIONS EVEN AND UNLABORED ON RA;TELE MONITORING IN PLACE;IV SITE PATENT;ASSESSMENT REMAINS UNCHANGED;CALL LIGHT IN REACH;WILL CONTINUE TO MONITOR
[2020-02-23 19:00] VITALS: BP 133/58
--- NOTE | 2020-02-23 21:05 | NUR ---
PT MEDICATED AND ASSESSMENT COMPLETED AT THIS TIME. NO S/O DISTRESS NOTED. PT MEDICATED WITH TYLENOL PER REQUEST FOR GENERALIZED PAIN 3/10 ON PAIN SCALE AND HEADACHE. LUNG SOUNDS ARE CLEAR THROUGHOUT. SKIN APPEARS INTACT. PT DENIES ANY OTHER NEEDS AT THIS TIME. CALL LIGHT AT SIDE AND PT ENCOURAGED TO CALL NEEDS ARISE.
[2020-02-24] VITALS: BP 132/72
--- NOTE | 2020-02-24 00:05 | NUR ---
PT APPEARS TO BE SLEEPING AT THIS TIME. 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
[2020-02-24 04:00] VITALS: BP 124/65
--- NOTE | 2020-02-24 04:29 | NUR ---
PT MEDICATED WITH TYLENOL FOR HEADACHE REQUESTED. PT IS STILL ASKING "WHY WON'T THEY LET ME GO HOME? THEY ACT LIKE I DON'T HAVE A BRAIN AND I DO." SHE IS CALM AND IN BED, BUT VOICING CONCERN ABOUT WANTING TO GO HOME INSTEAD OF REHAB. I SUGGESTED THAT THEY WERE CONCERNED ABOUT HER NEEDING ASSISTANCE AND THAT SHE COULD TALK WITH THE DOCTOR AND CASE MANAGEMENT ABOUT IT IN THE MORNING.
[2020-02-24 08:51] LABS: INTERNATIONAL NORMALIZED RATIO 2.1 RATIO (0.7-1.3); PROTHROMBIN TIME 20.5 SECONDS (9.0-12.5)
[2020-02-24] MEDS ORDERED: ULTRAM50 M1 PO (13:08)
[2020-02-24] MEDS ORDERED: ESCITALOPRAM OX10 MG PO (13:08)
== END 2020-02-24 15:32 ==
LOC: ED 17:28 → ED-I 18:16 → ED 21:30 → MS2 21:31
PROVIDERS: Emergency Medicine; Internal Medicine; Nurse Practitioner; ADMIT Internal Medicine; ATTEND Internal Medicine
DX: R07.9 Chest pain, unspecified (principal); I48.21 Permanent atrial fibrillation; U07.1 COVID-19; M79.622 Pain in left upper arm; I13.0 Hypertensive heart and chronic kidney disease with heart failure and stage 1 through stage 4 chronic kidney disease, or unspecified chronic kidney disease; I50.9 Heart failure, unspecified; N18.9 Chronic kidney disease, unspecified; I42.9 Cardiomyopathy, unspecified; F32.9 Major depressive disorder, single episode, unspecified; G20 Parkinson's disease; H40.9 Unspecified glaucoma; H54.61 Unqualified visual loss, right eye, normal vision left eye; Z85.3 Personal history of malignant neoplasm of breast; Z90.12 Acquired absence of left breast and nipple; Z87.891 Personal history of nicotine dependence; Z79.01 Long term (current) use of anticoagulants

== ENCOUNTER 2020-04-17 17:00 | Emergency (ER) | payer MEDICARE, MEDICAID ==
[~2020-04-17] VITALS: Ht 177.8 cm; Wt 84.5 kg
[~2020-04-17 17:00] MED LIST changes: +WELLBUTRIN XL150 MG PO
[2020-04-17 19:00] VITALS: BP 156/80
== END 2020-04-17 19:35 ==
LOC: ED 17:00
PROC: 0HQGXZZ Repair Left Hand Skin, External Approach (ICD-10-PCS; principal; 2020-04-17)
DX: S00.03XA Contusion of scalp, initial encounter (principal); S61.217A Laceration without foreign body of left little finger without damage to nail, initial encounter; I48.91 Unspecified atrial fibrillation; I11.0 Hypertensive heart disease with heart failure; I50.9 Heart failure, unspecified; W01.0XXA Fall on same level from slipping, tripping and stumbling without subsequent striking against object, initial encounter; Y92.099 Unspecified place in other non-institutional residence as the place of occurrence of the external cause

== ENCOUNTER 2020-07-11 10:10 | Emergency (ER) | payer MEDICARE, MEDICAID ==
[~2020-07-11] VITALS: Ht 177.8 cm; Wt 56.0 kg
[2020-07-11] MEDS ORDERED: BISACODYL5 MG PO (10:34)
[2020-07-11] MEDS ORDERED: ASPIRIN81 MG PO (10:34)
[2020-07-11] MEDS ORDERED: FUROSEMIDE20 MG PO (10:34)
[2020-07-11] MEDS ORDERED: DOK100 MG PO (10:34)
[2020-07-11] MEDS ORDERED: ISOSORB MONO30 MG PO (10:35)
[2020-07-11] MEDS ORDERED: PRED FORTE1 % OD (10:36)
[2020-07-11] MEDS ORDERED: SENEXON-S1 TAB PO (10:37)
[2020-07-11] MEDS ORDERED: RANOLAZINE ER500 MG PO (10:37)
[2020-07-11] MEDS ORDERED: XARELTO10 MG PO (10:38)
[2020-07-11 11:12] LABS: IMMATURE GRANULOCYTES 0.4 % (0.0-5.0); MEAN CORPUSCULAR HGB 28.1 pG CALC (26.0-32.0); NEUT# 4.13 thou/uL (2.00-7.15); RED BLOOD COUNT 2.63 mill/uL (4.20-5.60); RED CELL DISTRI WIDTH 16.5 % (11.5-15.5)
[2020-07-11 11:30] LABS: HEMATOCRIT 24.7 % (37.0-47.0); HEMOGLOBIN 7.4 g/dl (12.0-16.0); MEAN CELL VOLUME 93.9 fL CALC (80.0-100.0)
[2020-07-11 11:37] LABS: ALBUMIN 3.4 g/dL (3.2-5.0); ALKALINE PHOSPHATASE 67 u/l (38-126); BUN 12 mg/dL (8-23); BUN/CREATININE RATIO 17 (12-20 (CALC)); CARBON DIOXIDE 28 mmol/l (22-30); CHLORIDE 103 mmol/l (95-108); CREATININE 0.7 mg/dL (0.5-1.0); GFR > 60 ML/MIN (>=60 (CALC)); GFR FOR AFR.AMER. > 60 ML/MIN (>=60 (CALC)); LIPASE 50 u/l (23-300); SGOT/AST 17 u/l (9-36); SODIUM 137 mmol/l (137-146); TOTAL PROTEIN 6.2 g/dL (6.3-8.2)
[2020-07-11 11:40] LABS: ANION GAP 9 (6-22 (CALC)); BILIRUBIN, TOTAL 1.1 mg/dL (0.0-1.4); POTASSIUM 3.4 mmol/l (3.5-5.1)
[2020-07-11 12:45] LABS: URINE BILIRUBIN - DIPSTICK NEGATIVE (NEGATIVE); URINE BLOOD DIPSTICK NEGATIVE (NEGATIVE); URINE COLOR YELLOW; URINE GLUCOSE - DIPSTICK NEGATIVE (NEGATIVE); URINE KETONE NEGATIVE (NEGATIVE); URINE LEUK ESTERASE NEGATIVE (NEGATIVE); URINE PROTEIN - DIPSTICK NEGATIVE (NEG-TRACE); URINE UROBILINOGEN - DIPSTICK 0.2 E.U./dL (0.2)
[2020-07-11 12:58] LABS: URINE NITRITE - DIPSTICK NEGATIVE (Negative)
[2020-07-11 15:00] VITALS: BP 123/58
--- NOTE | 2020-07-13 07:44 | NUR ---
PRELIM BLOOD CX RESULTS CALLED TO [facility], REPORTED TO CHARU, AND FAXED TO [phone]
--- NOTE | 2020-07-14 10:13 | NUR ---
FINAL BLOOD CX RESULTS SHOWS MICROCOCCUS LUTEUS, CONTAMINANT. CALLED TO NURSE CAROLA @ [facility], FAXED TO [phone]
== END 2020-07-11 15:35 | disposition short-term general hospital (02) ==
LOC: ED 10:10
PROVIDERS: Family Medicine
DX: D64.9 Anemia, unspecified (principal); I95.9 Hypotension, unspecified; R07.89 Other chest pain; M54.2 Cervicalgia; R51.9 Headache, unspecified; M25.522 Pain in left elbow; I11.0 Hypertensive heart disease with heart failure; I50.9 Heart failure, unspecified; I48.91 Unspecified atrial fibrillation; W01.190A Fall on same level from slipping, tripping and stumbling with subsequent striking against furniture, initial encounter; Y92.129 Unspecified place in nursing home as the place of occurrence of the external cause; Z20.822 Contact with and (suspected) exposure to COVID-19
CPT/HCPCS: J0131

== ENCOUNTER 2020-08-09 13:25 | Emergency (ER) | payer MEDICARE, MEDICAID ==
[~2020-08-09] VITALS: Ht 177.8 cm; Wt 73.0 kg
[~2020-08-09 13:25] MED LIST changes: +ASPIRIN81 MG PO; +BISACODYL5 MG PO; +DOK100 MG PO; +FUROSEMIDE20 MG PO; +RANOLAZINE ER500 MG PO; +SENEXON-S1 TAB PO; +XARELTO10 MG PO
[2020-08-09 14:06] LABS: HEMATOCRIT 28.8 % (37.0-47.0); HEMOGLOBIN 8.6 g/dl (12.0-16.0); IMMATURE GRANULOCYTES 0.3 % (0.0-5.0); MEAN CELL VOLUME 93.2 fL CALC (80.0-100.0); MEAN CORPUSCULAR HGB 27.8 pG CALC (26.0-32.0); MEAN CORPUSCULAR HGB CONC 29.9 g/dL CAL (32.0-36.0); NEUT# 3.97 thou/uL (2.00-7.15); RED BLOOD COUNT 3.09 mill/uL (4.20-5.60); RED CELL DISTRI WIDTH 17.8 % (11.5-15.5)
[2020-08-09 14:14] LABS: ANION GAP 13 (6-22 (CALC)); BUN 18 mg/dL (8-23); BUN/CREATININE RATIO 22 (12-20 (CALC)); CARBON DIOXIDE 31 mmol/l (22-30); CHLORIDE 95 mmol/l (95-108); CREATININE 0.8 mg/dL (0.5-1.0); GFR > 60 ML/MIN (>=60 (CALC)); GFR FOR AFR.AMER. > 60 ML/MIN (>=60 (CALC)); POTASSIUM 3.1 mmol/l (3.5-5.1); SODIUM 135 mmol/l (137-146)
[2020-08-09 14:59] VITALS: BP 96/55
== END 2020-08-09 14:55 ==
LOC: ED 13:25
PROVIDERS: Family Medicine
DX: M25.522 Pain in left elbow (principal); I11.0 Hypertensive heart disease with heart failure; I50.9 Heart failure, unspecified; I48.91 Unspecified atrial fibrillation; H40.9 Unspecified glaucoma; W18.30XA Fall on same level, unspecified, initial encounter; Y92.129 Unspecified place in nursing home as the place of occurrence of the external cause

== ENCOUNTER 2020-08-16 17:57 | Emergency (ER) | payer MEDICARE, MEDICAID ==
[~2020-08-16] VITALS: Ht 177.8 cm; Wt 88.6 kg
[2020-08-16 20:22] LABS: HEMATOCRIT 30.5 % (37.0-47.0); IMMATURE GRANULOCYTES 0.2 % (0.0-5.0); MEAN CELL VOLUME 92.7 fL CALC (80.0-100.0); MEAN CORPUSCULAR HGB 27.4 pG CALC (26.0-32.0); MEAN CORPUSCULAR HGB CONC 29.5 g/dL CAL (32.0-36.0); NEUT# 4.33 thou/uL (2.00-7.15); RED BLOOD COUNT 3.29 mill/uL (4.20-5.60); RED CELL DISTRI WIDTH 17.4 % (11.5-15.5)
[2020-08-16 20:33] LABS: ALKALINE PHOSPHATASE 74 u/l (38-126); BILIRUBIN, TOTAL 0.9 mg/dL (0.0-1.4); BUN 14 mg/dL (8-23); BUN/CREATININE RATIO 16 (12-20 (CALC)); CARBON DIOXIDE 27 mmol/l (22-30); CHLORIDE 97 mmol/l (95-108); CREATININE 0.9 mg/dL (0.5-1.0); GFR 60 ML/MIN (>=60 (CALC)); GFR FOR AFR.AMER. > 60 ML/MIN (>=60 (CALC)); SGOT/AST 13 u/l (9-36); SODIUM 135 mmol/l (137-146)
[2020-08-16 20:34] LABS: ALBUMIN 4.1 g/dL (3.2-5.0); ANION GAP 15 (6-22 (CALC)); POTASSIUM 4.3 mmol/l (3.5-5.1)
[2020-08-16 22:15] VITALS: BP 133/70
== END 2020-08-16 22:20 | disposition home or self-care (01) ==
LOC: ED 17:57
DX: S09.90XA Unspecified injury of head, initial encounter (principal); I11.0 Hypertensive heart disease with heart failure; I50.9 Heart failure, unspecified; I48.91 Unspecified atrial fibrillation; W07.XXXA Fall from chair, initial encounter; Y92.099 Unspecified place in other non-institutional residence as the place of occurrence of the external cause; Z91.81 History of falling
CPT/HCPCS: Q9967

== ENCOUNTER 2020-09-04 20:35 | Emergency (ER) | payer MEDICARE, MEDICAID ==
[~2020-09-04] VITALS: Ht 177.8 cm; Wt 81.0 kg
[2020-09-04] MEDS ORDERED: SPIRONOLACTONE25 MG PO (22:23)
[2020-09-04] MEDS ORDERED: DILT-XR180 MG PO (22:28)
[2020-09-04 22:33] VITALS: BP 99/65
[2020-09-04] MEDS ORDERED: DICLOFENAC SODIUM1 % (22:33)
== END 2020-09-04 22:33 ==
LOC: ED 20:35
DX: Z04.3 Encounter for examination and observation following other accident (principal); I11.0 Hypertensive heart disease with heart failure; I50.9 Heart failure, unspecified; I48.91 Unspecified atrial fibrillation; H40.9 Unspecified glaucoma; H54.61 Unqualified visual loss, right eye, normal vision left eye; Z91.81 History of falling

== ENCOUNTER 2020-09-24 09:36 | Observation (INO) | payer MEDICARE, MEDICAID ==
[~2020-09-24] VITALS: Ht 177.8 cm; Wt 73.0 kg
[~2020-09-24 09:36] MED LIST changes: +DICLOFENAC SODIUM1 %; +DILT-XR180 MG PO; +SPIRONOLACTONE25 MG PO
[2020-09-24 10:11] LABS: IMMATURE GRANULOCYTES 0.4 % (0.0-5.0); MEAN CELL VOLUME 97.9 fL CALC (80.0-100.0); MEAN CORPUSCULAR HGB 30.1 pG CALC (26.0-32.0); MEAN CORPUSCULAR HGB CONC 30.7 g/dL CAL (32.0-36.0); NEUT# 4.03 thou/uL (2.00-7.15); RED BLOOD COUNT 3.76 mill/uL (4.20-5.60); RED CELL DISTRI WIDTH 21.8 % (11.5-15.5)
[2020-09-24 10:29] LABS: HEMATOCRIT 36.8 % (37.0-47.0); HEMOGLOBIN 11.3 g/dl (12.0-16.0)
[2020-09-24 10:39] LABS: ALBUMIN 3.4 g/dL (3.2-5.0); ALKALINE PHOSPHATASE 76 u/l (38-126); BUN 10 mg/dL (8-23); BUN/CREATININE RATIO 16 (12-20 (CALC)); CARBON DIOXIDE 24 mmol/l (22-30); CHLORIDE 102 mmol/l (95-108); CREATININE 0.6 mg/dL (0.5-1.0); GFR > 60 ML/MIN (>=60 (CALC)); GFR FOR AFR.AMER. > 60 ML/MIN (>=60 (CALC)); LIPASE 55 u/l (23-300); SGOT/AST 19 u/l (9-36); SODIUM 134 mmol/l (137-146)
[2020-09-24 10:47] LABS: AMYLASE < 30 u/l (30-110); ANION GAP 12 (6-22 (CALC)); BILIRUBIN, TOTAL 1.4 mg/dL (0.0-1.4); POTASSIUM 3.5 mmol/l (3.5-5.1)
[2020-09-24 10:54] LABS: ACT PARTIAL THROMBO TIME 22.9 SECONDS (20.0-32.5)
[2020-09-24 11:03] LABS: INTERNATIONAL NORMALIZED RATIO 1.1 RATIO (0.7-1.3); PROTHROMBIN TIME 11.8 SECONDS (9.0-12.5)
[2020-09-24] MEDS ORDERED: ARTHRITIS PAIN RE1 % TOP (12:51)
[2020-09-24] MEDS ORDERED: KAPSPARGO SPRIN50 MG PO (12:52)
[2020-09-24] MEDS ORDERED: ESCITALOPRAM OX20 MG PO (12:52)
[2020-09-24] MEDS ORDERED: PROTONIX40 M2 PO (12:53)
[2020-09-24] MEDS ORDERED: VITAMIN D325 MCG PO (12:55)
[2020-09-24] MEDS ORDERED: TRAMADOL HYDROC50 M1 PO (12:55)
[2020-09-24 13:14] VITALS: BP 135/81
[2020-09-24] MEDS ORDERED: CIPROFLOXACIN250 MG PO (13:20)
[2020-09-24] MEDS ORDERED: NYSTATIN100000 UN2 TOP (13:22)
[2020-09-24] MEDS ORDERED: NYSTOP100000 UNI TOP (13:23)
[2020-09-24 14:30] VITALS: BP 152/96
[2020-09-24 14:51] LABS: URINE BILIRUBIN - DIPSTICK NEGATIVE (NEGATIVE); URINE BLOOD DIPSTICK NEGATIVE (NEGATIVE); URINE COLOR YELLOW; URINE GLUCOSE - DIPSTICK >=1000 mg/dL (NEGATIVE); URINE KETONE NEGATIVE (NEGATIVE); URINE LEUK ESTERASE NEGATIVE (NEGATIVE); URINE PROTEIN - DIPSTICK NEGATIVE (NEG-TRACE); URINE UROBILINOGEN - DIPSTICK 0.2 E.U./dL (0.2)
[2020-09-24 14:53] LABS: URINE NITRITE - DIPSTICK NEGATIVE (Negative)
[2020-09-24 18:59] VITALS: BP 128/84
[2020-09-24 23:21] VITALS: BP 119/80
[2020-09-25 03:49] VITALS: BP 131/86
[2020-09-25 06:21] LABS: HEMATOCRIT 36.7 % (37.0-47.0); HEMOGLOBIN 11.4 g/dl (12.0-16.0); MEAN CELL VOLUME 98.1 fL CALC (80.0-100.0); MEAN CORPUSCULAR HGB 30.5 pG CALC (26.0-32.0); MEAN CORPUSCULAR HGB CONC 31.1 g/dL CAL (32.0-36.0); RED BLOOD COUNT 3.74 mill/uL (4.20-5.60); RED CELL DISTRI WIDTH 21.7 % (11.5-15.5)
[2020-09-25 06:38] LABS: ANION GAP 10 (6-22 (CALC)); BUN 8 mg/dL (8-23); BUN/CREATININE RATIO 16 (12-20 (CALC)); CARBON DIOXIDE 26 mmol/l (22-30); CHLORIDE 104 mmol/l (95-108); CREATININE 0.5 mg/dL (0.5-1.0); GFR > 60 ML/MIN (>=60 (CALC)); GFR FOR AFR.AMER. > 60 ML/MIN (>=60 (CALC)); POTASSIUM 3.5 mmol/l (3.5-5.1); SODIUM 136 mmol/l (137-146)
[2020-09-25 06:50] LABS: MAGNESIUM 1.5 mg/dL (1.6-2.3)
[2020-09-25 07:02] VITALS: BP 128/80
[2020-09-25 11:08] VITALS: BP 120/77
[2020-09-25] MEDS ORDERED: GLUCOTROL EXTE2.5 M1 PO (11:31)
[2020-09-25] MEDS ORDERED: METFORMIN500 M2 PO (11:31)
== END 2020-09-25 14:29 ==
LOC: ED 09:36 → ED-I 11:26 → ED 11:39 → MS2 11:40
PROVIDERS: Nurse Practitioner; ADMIT Internal Medicine; ATTEND Internal Medicine
DX: S00.03XA Contusion of scalp, initial encounter (principal); S50.01XA Contusion of right elbow, initial encounter; R93.89 Abnormal findings on diagnostic imaging of other specified body structures; I11.0 Hypertensive heart disease with heart failure; I50.9 Heart failure, unspecified; E11.9 Type 2 diabetes mellitus without complications; I48.21 Permanent atrial fibrillation; I42.9 Cardiomyopathy, unspecified; F03.90 Unspecified dementia, unspecified severity, without behavioral disturbance, psychotic disturbance, mood disturbance, and anxiety; H54.61 Unqualified visual loss, right eye, normal vision left eye; H40.9 Unspecified glaucoma; W19.XXXA Unspecified fall, initial encounter; Z87.891 Personal history of nicotine dependence; Y92.091 Bathroom in other non-institutional residence as the place of occurrence of the external cause; Z20.822 Contact with and (suspected) exposure to COVID-19
CPT/HCPCS: G0378; J3475; L0120

== ENCOUNTER 2020-11-15 07:49 | Emergency (ER) | payer MEDICARE, MEDICAID ==
[~2020-11-15] VITALS: Ht 177.8 cm; Wt 70.0 kg
[~2020-11-15 07:49] MED LIST changes: +ARTHRITIS PAIN RE1 % TOP; +CIPROFLOXACIN250 MG PO; +ESCITALOPRAM OX20 MG PO; +GLUCOTROL EXTE2.5 M1 PO; +KAPSPARGO SPRIN50 MG PO; +METFORMIN500 M2 PO; +NYSTATIN100000 UN2 TOP; +NYSTOP100000 UNI TOP; +PROTONIX40 M2 PO; +TRAMADOL HYDROC50 M1 PO; +VITAMIN D325 MCG PO
[2020-11-15 08:48] LABS: HEMATOCRIT 36.7 % (37.0-47.0); HEMOGLOBIN 11.4 g/dl (12.0-16.0); IMMATURE GRANULOCYTES 0.4 % (0.0-5.0); MEAN CORPUSCULAR HGB 32.5 pG CALC (26.0-32.0); MEAN CORPUSCULAR HGB CONC 31.1 g/dL CAL (32.0-36.0); NEUT# 5.04 thou/uL (2.00-7.15); RED BLOOD COUNT 3.51 mill/uL (4.20-5.60); RED CELL DISTRI WIDTH 16.8 % (11.5-15.5)
[2020-11-15 08:49] LABS: MEAN CELL VOLUME 104.6 fL CALC (80.0-100.0)
[2020-11-15 09:14] LABS: ALBUMIN 3.7 g/dL (3.2-5.0); ALKALINE PHOSPHATASE 59 u/l (38-126); BILIRUBIN, TOTAL 1.5 mg/dL (0.0-1.4); BUN 15 mg/dL (8-23); BUN/CREATININE RATIO 22 (12-20 (CALC)); CHLORIDE 97 mmol/l (95-108); CREATININE 0.7 mg/dL (0.5-1.0); GFR > 60 ML/MIN (>=60 (CALC)); GFR FOR AFR.AMER. > 60 ML/MIN (>=60 (CALC)); SGOT/AST 22 u/l (9-36); SODIUM 135 mmol/l (137-146); TOTAL PROTEIN 6.6 g/dL (6.3-8.2)
[2020-11-15 09:19] LABS: ANION GAP 8 (6-22 (CALC)); CARBON DIOXIDE 33 mmol/l (22-30); POTASSIUM 2.7 mmol/l (3.5-5.1)
[2020-11-15 09:20] LABS: URINE BILIRUBIN - DIPSTICK NEGATIVE (NEGATIVE); URINE BLOOD DIPSTICK NEGATIVE (NEGATIVE); URINE COLOR YELLOW; URINE GLUCOSE - DIPSTICK NEGATIVE (NEGATIVE); URINE KETONE TRACE mg/dL (NEGATIVE); URINE LEUK ESTERASE NEGATIVE (NEGATIVE); URINE NITRITE - DIPSTICK NEGATIVE (Negative); URINE PROTEIN - DIPSTICK NEGATIVE (NEG-TRACE); URINE SPECIFIC GRAVITY 1.025
[2020-11-15] MEDS ORDERED: KLOR-CON M2020 MEQ PO (12:32)
[2020-11-15 12:50] VITALS: BP 130/70
== END 2020-11-15 13:36 ==
LOC: ED 07:49
PROVIDERS: Family Medicine
DX: E87.6 Hypokalemia (principal); S51.811A Laceration without foreign body of right forearm, initial encounter; M54.5 Low back pain; E11.9 Type 2 diabetes mellitus without complications; I10 Essential (primary) hypertension; I48.91 Unspecified atrial fibrillation; F03.90 Unspecified dementia, unspecified severity, without behavioral disturbance, psychotic disturbance, mood disturbance, and anxiety; F32.9 Major depressive disorder, single episode, unspecified; W19.XXXA Unspecified fall, initial encounter; Y92.099 Unspecified place in other non-institutional residence as the place of occurrence of the external cause; Z79.84 Long term (current) use of oral hypoglycemic drugs; Z20.822 Contact with and (suspected) exposure to COVID-19
CPT/HCPCS: J3475

== ENCOUNTER 2020-11-19 08:14 | Emergency (ER) | payer MEDICARE, MEDICAID ==
[~2020-11-19] VITALS: Ht 177.8 cm; Wt 68.0 kg
[~2020-11-19 08:14] MED LIST changes: +KLOR-CON M2020 MEQ PO
[2020-11-19 09:14] LABS: URINE BILIRUBIN - DIPSTICK NEGATIVE (NEGATIVE); URINE BLOOD DIPSTICK NEGATIVE (NEGATIVE); URINE COLOR YELLOW; URINE GLUCOSE - DIPSTICK NEGATIVE (NEGATIVE); URINE KETONE NEGATIVE (NEGATIVE); URINE LEUK ESTERASE NEGATIVE (NEGATIVE); URINE PROTEIN - DIPSTICK NEGATIVE (NEG-TRACE)
[2020-11-19 09:16] LABS: HEMATOCRIT 35.1 % (37.0-47.0); HEMOGLOBIN 10.9 g/dl (12.0-16.0); IMMATURE GRANULOCYTES 0.3 % (0.0-5.0); MEAN CELL VOLUME 105.4 fL CALC (80.0-100.0); MEAN CORPUSCULAR HGB 32.7 pG CALC (26.0-32.0); MEAN CORPUSCULAR HGB CONC 31.1 g/dL CAL (32.0-36.0); NEUT# 4.41 thou/uL (2.00-7.15); RED BLOOD COUNT 3.33 mill/uL (4.20-5.60); RED CELL DISTRI WIDTH 16.5 % (11.5-15.5)
[2020-11-19 09:18] LABS: URINE NITRITE - DIPSTICK NEGATIVE (Negative)
[2020-11-19 09:20] LABS: ALBUMIN 3.3 g/dL (3.2-5.0); ALKALINE PHOSPHATASE 64 u/l (38-126); ANION GAP 10 (6-22 (CALC)); BILIRUBIN, TOTAL 1.1 mg/dL (0.0-1.4); BUN 12 mg/dL (8-23); BUN/CREATININE RATIO 20 (12-20 (CALC)); CARBON DIOXIDE 31 mmol/l (22-30); CHLORIDE 98 mmol/l (95-108); CREATININE 0.6 mg/dL (0.5-1.0); GFR > 60 ML/MIN (>=60 (CALC)); GFR FOR AFR.AMER. > 60 ML/MIN (>=60 (CALC)); POTASSIUM 3.1 mmol/l (3.5-5.1); SGOT/AST 16 u/l (9-36); SODIUM 136 mmol/l (137-146)
[2020-11-19] MEDS ORDERED: K-TAB20 MEQ PO (09:51)
[2020-11-19 10:49] VITALS: BP 133/62
== END 2020-11-19 10:50 | disposition home or self-care (01) ==
LOC: ED 08:14
PROVIDERS: Family Medicine
DX: S00.03XA Contusion of scalp, initial encounter (principal); S00.01XA Abrasion of scalp, initial encounter; E87.6 Hypokalemia; E11.9 Type 2 diabetes mellitus without complications; I10 Essential (primary) hypertension; F03.90 Unspecified dementia, unspecified severity, without behavioral disturbance, psychotic disturbance, mood disturbance, and anxiety; F32.9 Major depressive disorder, single episode, unspecified; K21.9 Gastro-esophageal reflux disease without esophagitis; W19.XXXA Unspecified fall, initial encounter; Y92.129 Unspecified place in nursing home as the place of occurrence of the external cause; Z79.84 Long term (current) use of oral hypoglycemic drugs

== ENCOUNTER 2020-12-03 15:05 | Emergency (ER) | payer MEDICARE, MEDICAID ==
[~2020-12-03] VITALS: Ht 177.8 cm; Wt 75.0 kg
[~2020-12-03 15:05] MED LIST changes: +K-TAB20 MEQ PO
[2020-12-03 16:58] LABS: HEMATOCRIT 38.2 % (37.0-47.0); HEMOGLOBIN 11.7 g/dl (12.0-16.0); IMMATURE GRANULOCYTES 0.3 % (0.0-5.0); MEAN CELL VOLUME 111.4 fL CALC (80.0-100.0); MEAN CORPUSCULAR HGB 34.1 pG CALC (26.0-32.0); MEAN CORPUSCULAR HGB CONC 30.6 g/dL CAL (32.0-36.0); NEUT# 6.55 thou/uL (2.00-7.15); RED BLOOD COUNT 3.43 mill/uL (4.20-5.60); RED CELL DISTRI WIDTH 16.4 % (11.5-15.5)
[2020-12-03 17:45] VITALS: BP 150/82
== END 2020-12-03 17:46 | disposition short-term general hospital (02) ==
LOC: ED 15:05
PROVIDERS: Family Medicine
DX: S06.6X9A Traumatic subarachnoid hemorrhage with loss of consciousness of unspecified duration, initial encounter (principal); R40.2412 Glasgow coma scale score 13-15, at arrival to emergency department; S01.81XA Laceration without foreign body of other part of head, initial encounter; E11.9 Type 2 diabetes mellitus without complications; I10 Essential (primary) hypertension; I48.91 Unspecified atrial fibrillation; F32.A Depression, unspecified; F03.90 Unspecified dementia, unspecified severity, without behavioral disturbance, psychotic disturbance, mood disturbance, and anxiety; W19.XXXA Unspecified fall, initial encounter; Y92.129 Unspecified place in nursing home as the place of occurrence of the external cause; Z79.82 Long term (current) use of aspirin; Z79.84 Long term (current) use of oral hypoglycemic drugs
CPT/HCPCS: J1953